=== PATIENT | male | born 1960 | race Caucasian/White ===

== ENCOUNTER 2017-05-17 15:00 | Inpatient (IN) | payer BC ==
[2017-06-16 15:06] VITALS: BMI 34.4
[2017-06-21] MEDS ORDERED: CEFAZOLIN/Water 2 GM/20 ML SYRINGE ONE (06:12)
[2017-06-21] MEDS ORDERED: Tranexamic Acid 1,000 MG/100 ML BAG ONE ×2 (06:12→09:25)
[2017-06-21] MEDS ORDERED: Fentanyl 100 MCG/2 ML VIAL ONE ×2 (06:25→06:44)
[2017-06-21] MEDS ORDERED: Midazolam HCl 2 mg/2 ml Vial ONE (06:25)
[2017-06-21] MEDS ORDERED: Lidocaine 2% w/Epinephrine 1:200K 20 ML VIAL ONE (06:26)
[2017-06-21] MEDS ORDERED: Bupivacaine 0.25% HCL 30 ML VIAL ONE ×2 (06:27→07:45)
[2017-06-21] MEDS ORDERED: Dexamethasone 20 MG/5 ML VIAL ONE (07:24)
[2017-06-21] MEDS ORDERED: Ketorolac Tromethamine 30 MG/ML VIAL ONE (07:24)
[2017-06-21] MEDS ORDERED: Ondansetron HCl/PF 4 MG/2 ML Vial ONE (07:24)
[2017-06-21] MEDS ORDERED: Propofol 200 MG/20 ML VIAL ONE (07:24)
[2017-06-21] MEDS ORDERED: Ondansetron HCl/PF 4 MG/2 ML Vial IVP PRN ×3 (07:31→09:35)
[2017-06-21] MEDS ORDERED: Zolpidem Tartrate 5 MG TAB PO PRN ×2 (07:31→09:35)
[2017-06-21] MEDS ORDERED: Promethazine HCl 25 MG/ML VIAL IM PRN ×3 (07:31→09:35)
[2017-06-21] MEDS ORDERED: Ropivacaine 0.2% 550 ML 550 ML NERVE BLCK SCH (07:31)
[2017-06-21] MEDS ORDERED: HYDROcodone/Acetaminophen 10/325 mg Tablet PO PRN ×3 (07:31→09:35)
[2017-06-21] MEDS ORDERED: traMADol HCl 50 MG TAB PO PRN ×3 (07:31→09:35)
[2017-06-21] MEDS ORDERED: Ketorolac Tromethamine 30 MG/ML VIAL IVP PRN (07:31)
[2017-06-21] MEDS ORDERED: Fentanyl 100 MCG/2 ML VIAL IV PRN (07:32)
[2017-06-21] MEDS ORDERED: Promethazine HCl 25 MG/ML VIAL SLOW IVP PRN (09:22)
[2017-06-21] MEDS ORDERED: Tranexamic Acid 1,000 MG in Sodium Chloride 0.9% 100 ML IVPB SCH (09:30)
[2017-06-21] MEDS ORDERED: Fentanyl 100 MCG/2 ML VIAL SLOW IVP PRN ×2 (09:35)
[2017-06-21] MEDS ORDERED: Acetaminophen 325 MG TAB PO PRN (09:35)
[2017-06-21] MEDS ORDERED: diphenhydrAMINE 25 MG CAP PO PRN (09:35)
[2017-06-21] MEDS: Dextrose 5 %-0.45 % NaCl 1,000 ML IV SCH ×2 (11:11→20:35)
--- NOTE | 2017-06-21 11:36 | OP ---
DATE OF PROCEDURE: PREOPERATIVE DIAGNOSIS: Right knee osteoarthritis, tricompartmental osteoarthritis. POSTOPERATIVE DIAGNOSIS: Right knee osteoarthritis, tricompartmental osteoarthritis. PROCEDURE PERFORMED: Right total knee arthroplasty. STAFF: Carson Portillo M.D. EXCHANGE OPERATOR: SHONA Drummond ANESTHESIA: Rabago, general LMA with single shot sciatic adductor canal. ESTIMATED BLOOD LOSS: 100 mL. TOURNIQUET TIME: 87 minutes. IMPLANTS: Wells 5 femoral component, 5 tibial component, A32 patella and a 9 mm poly. ANTIBIOTICS: The patient received Ancef 2 grams, TXA 1 gram. COMPLICATIONS: None. HISTORY OF PRESENT ILLNESS: Mr. Funes is a 57-year-old male who presented with bilateral knee osteoarthritis. He underwent a left total knee arthroplasty on 03/15/2017, presents back for repeat total knee arthroplasty on the right side. The patient understood risks and benefits of his right knee total knee arthroplasty to include pain, scar, bleeding, infection, decreased range of motion or strength, failure of the procedure, continued pain despite surgical intervention, loss of life or limb. The patient understood the risks and benefits of procedure and elected to proceed. PROCEDURE IN DETAIL: Time out was performed designating the patient's right lower extremity as the operative site based on sight, consents and markings. A timeout was performed, his right lower extremity designated as the operative site based on sight, consents and markings. After timeout was performed, the patient's tourniquet was brought up and was left up for 87 minutes. An anterior midline approach was made medial parapatellar arthrotomy, excised the fat pad. We took down the medial MCL, everted patella, mapped out the distal femur, removed some osteophytes, cut about 9 to 10 mm with 0 degrees varus valgus and 4 degrees anterior slope. We then made our chamfer cuts, we then placed our 3 degree external rotation guide, pinned it into position, mapped a size 5 like his opposite side. We then cut anterior and posterior chamfer cuts. We then removed the osteophytes from the distal femur. We then placed our pickle fork in position to map out our tibia and mapped the tibia. We cut 2 and 6 degrees, 4 degrees posterior slope and 0 degrees varus valgus. We removed bone, removed osteophytes, placed our lamina public relations writer, decompressed the medial and lateral, the PCL the osteophytes medial and laterally, pinned our size 5 tibial tray into position. We placed it into one-third same rotation. We then pinned in place. We placed a 9 mm poly. We had perfect full extension , good flexion, good posterior, anterior drawer, a little bit of laxity and 20 degrees of flexion, but overall was perfectly stable. I liked the position and balance. We then everted the patella, cut it down from 24 down to about 12. We drilled and placed A32 patella, tracked well. I was happy with the overall alignment. We then removed it. We drilled our lugs for our femur, removed it. We cemented our tibia, placed our poly, cemented our femur, cemented our patella. We then closed the arthrotomy matching corner to corner and extension. We then closed subcutaneous. We placed 30 mL of Marcaine without epinephrine intraarticularly, we then closed subcutaneous with 2 Quill, 0 Quill , 2-0 Quill, and glue. The patient will be admitted back to [facility] for postop protocol. LIZ
--- NOTE | 2017-06-21 11:50 | RAD ---
RIGHT KNEE TWO VIEWS: History: 57-year-old male status post total knee arthroplasty. FINDINGS: AP and lateral views of the right knee demonstrate recent total knee arthroplasty changes without ev idence of dislocation or periprostatic fracture. IMPRESSION: Unremarkable recent post right knee arthroplasty. POS: ELIJAH
[2017-06-21] MEDS: HYDROcodone/Acetaminophen 10/325 mg Tablet PO PRN ×3 (12:39→20:38)
[2017-06-21] MEDS: Ketorolac Tromethamine 30 MG/ML VIAL IM SCH ×2 (14:00→21:23)
[2017-06-21] MEDS: CEFAZOLIN/Water 2 GM/20 ML SYRINGE SLOW IVP SCH (15:57)
[2017-06-22] MEDS: CEFAZOLIN/Water 2 GM/20 ML SYRINGE SLOW IVP SCH (00:56)
[2017-06-22] MEDS: HYDROcodone/Acetaminophen 10/325 mg Tablet PO PRN ×6 (01:06→21:31)
[2017-06-22] MEDS: Dextrose 5 %-0.45 % NaCl 1,000 ML IV SCH ×2 (04:37→15:56)
[2017-06-22 05:37] LABS: Hematocrit 44.5 % (42.0-52.0); Red Blood Cell (RBC) Count 5.85 mill/uL (4.70-6.10); White Blood Cell (WBC) Count 15.1 thou/uL (4.8-10.8)
[2017-06-22] MEDS: Ketorolac Tromethamine 30 MG/ML VIAL IM SCH ×3 (05:50→21:20)
[2017-06-22] MEDS: Ferrous Gluconate 324 MG TAB PO SCH ×2 (09:08→21:20)
[2017-06-22] MEDS: Cyanocobalamin (Vitamin B-12) 1,000 MCG TAB PO SCH (09:08)
[2017-06-22] MEDS: Aspirin 325 MG TAB PO SCH (09:08)
[2017-06-22] MEDS: Lisinopril 20 MG TAB PO SCH (09:08)
[2017-06-22] MEDS: Aspirin 325 mg Enteric Coated Tablet PO SCH (09:09)
[2017-06-22] MEDS: Amlodipine 10 MG TAB PO SCH (09:09)
[2017-06-22] MEDS: Hydrochlorothiazide 25 MG TAB PO SCH (09:09)
[2017-06-22] MEDS: Multivitamin W/ Minerals 1 TAB PO SCH ×2 (09:09→09:11)
[2017-06-22] MEDS: Senokot S 8.6-50 MG TAB PO SCH ×2 (09:11→21:19)
[2017-06-23] MEDS: Dextrose 5 %-0.45 % NaCl 1,000 ML IV SCH ×2 (00:29→14:16)
[2017-06-23] MEDS: HYDROcodone/Acetaminophen 10/325 mg Tablet PO PRN ×3 (03:32→12:33)
[2017-06-23 04:45] LABS: Hematocrit 41.6 % (42.0-52.0); Mean Platelet Volume 8.1 fL (7.4-10.4); Red Blood Cell (RBC) Count 5.47 mill/uL (4.70-6.10); White Blood Cell (WBC) Count 12.4 thou/uL (4.8-10.8)
[2017-06-23] MEDS: Ketorolac Tromethamine 30 MG/ML VIAL IM SCH (06:33)
--- NOTE | 2017-06-23 07:37 | DIS ---
ADMITTING DIAGNOSIS: Right knee osteoarthritis. DISCHARGE DIAGNOSIS: Right knee osteoarthritis. PROCEDURE PERFORMED: Right total knee arthroplasty. HISTORY OF PRESENT ILLNESS: Mr. Funes is a 67-year-old male who underwent a second total knee, to lerated it well. Pain was controlled postoperatively. The patient had no acute events. The patient will be discharged to home. DIET: Regular. DISCHARGE ACTIVITY: Follow up with physical therapy, weightbearing as tolerated, range of motion. The patient will restart pain medications for pain control as well as an aspirin daily, restart his home medications. Follow up with me in 3 weeks for followup.
[2017-06-23] MEDS: Lisinopril 20 MG TAB PO SCH (07:57)
[2017-06-23] MEDS: Hydrochlorothiazide 25 MG TAB PO SCH (07:58)
[2017-06-23] MEDS: Aspirin 325 MG TAB PO SCH (07:58)
[2017-06-23] MEDS: Ferrous Gluconate 324 MG TAB PO SCH (07:58)
[2017-06-23] MEDS: Senokot S 8.6-50 MG TAB PO SCH (07:58)
[2017-06-23] MEDS: Multivitamin W/ Minerals 1 TAB PO SCH ×2 (07:59→08:06)
[2017-06-23] MEDS: Amlodipine 10 MG TAB PO SCH (07:59)
[2017-06-23] MEDS: Aspirin 325 mg Enteric Coated Tablet PO SCH (08:06)
[2017-06-23 13:02] VITALS: BP 152/82; TEMP 98.2
[2017-06-23] MEDS: Cyanocobalamin (Vitamin B-12) 1,000 MCG TAB PO SCH (14:16)
== END 2017-06-23 15:54 | disposition home or self-care (01) | DRG 470 ==
LOC: SJJU 06-21 05:27 → EDSTATUS 06-21 15:00
PROVIDERS: ADMIT Orthopaedic Surgery; ATTEND Orthopaedic Surgery
PROC: 0SRC0J9 Replacement of Right Knee Joint with Synthetic Substitute, Cemented, Open Approach (ICD-10-PCS; principal; 2017-06-21)
PROC: 3E0T3BZ Introduction of Anesthetic Agent into Peripheral Nerves and Plexi, Percutaneous Approach (ICD-10-PCS; 2017-06-21)
DX: M17.11 Unilateral primary osteoarthritis, right knee (principal); I10 Essential (primary) hypertension; Z87.891 Personal history of nicotine dependence; Z96.652 Presence of left artificial knee joint; Z82.49 Family history of ischemic heart disease and other diseases of the circulatory system; Z83.3 Family history of diabetes mellitus; Z82.3 Family history of stroke
CPT/HCPCS: 36415; 85027; A4306; C1713; C1776; G8978-GP-CJ; G8979-GP-CH; J1100; J1885; J2250; J2405; J2550; J2704; J2795; J3010; S0020

== ENCOUNTER 2017-06-16 14:49 | Outpatient (CLI) | payer BC ==
[2017-06-16 16:46] LABS: Hematocrit 47.1 % (42.0-52.0); Mean Platelet Volume 8.3 fL (7.4-10.4); Red Blood Cell (RBC) Count 6.36 mill/uL (4.70-6.10); White Blood Cell (WBC) Count 10.8 thou/uL (4.8-10.8)
[2017-06-16 16:47] LABS: Bilirubin Negative (Negative); Blood, Urine Negative (Negative); Glucose, Urine (Dipstick) Negative (Negative); Ketone, Urine Negative (Negative); Nitrite Negative (Negative); Protein, Urine (Dipstick) Trace mg/dL (Neg-Trace); Urobilinogen 0.2 mg/dL (0.2-1.0)
[2017-06-16 16:49] LABS: Bacteria/HPF None Seen HPF (None Seen); Hyaline Casts/LPF 0-3 HYALINE CAST LPF (0-3 Hyaline); RBC/HPF 0-3 HPF (0-3); Squamous Epithelial None Seen HPF (0-3); WBC/HPF None Seen HPF (0-3)
[2017-06-16 16:51] LABS: Prothrombin Time 13.5 SEC (12.0-14.7)
[2017-06-16 17:11] LABS: Anion Gap 14 mmol/L (10-20); BUN (Urea Nitrogen) 25 mg/dL (8.4-25.7); Calc. Creatinine Clearance 0 mL/min (70-130); Calcium 9.7 mg/dL (7.8-10.44); Carbon Dioxide 23 mmol/L (22-29); Chloride 104 mmol/L (98-107); Estimated GFR-MDRD 64
== END 2017-06-16 14:50 | disposition home or self-care (01) ==
LOC: LABBT 14:49
PROVIDERS: ATTEND Orthopaedic Surgery
DX: Z01.812 Encounter for preprocedural laboratory examination (principal); M17.11 Unilateral primary osteoarthritis, right knee
CPT/HCPCS: 80048; 81001; 85027; 85610; 86850; 86900; 86901; 87081

== ENCOUNTER 2017-11-06 14:30 | Emergency (ER) | payer OTHER ==
[2017-11-06] MEDS ORDERED: Adacel (T-DAP) 0.5 ML VIAL ONE (15:04)
[2017-11-06] MEDS ORDERED: Bacitracin Zinc 1 Packet ONE (15:34)
== END 2017-11-06 15:44 | disposition home or self-care (01) ==
LOC: SCSER 14:30
DX: S61.211A Laceration without foreign body of left index finger without damage to nail, initial encounter (principal); I10 Essential (primary) hypertension; K21.9 Gastro-esophageal reflux disease without esophagitis; M19.90 Unspecified osteoarthritis, unspecified site; Z79.891 Long term (current) use of opiate analgesic; Z79.899 Other long term (current) drug therapy; W26.0XXA Contact with knife, initial encounter; Y92.009 Unspecified place in unspecified non-institutional (private) residence as the place of occurrence of the external cause
CPT/HCPCS: 12002; 90471; 90715

== ENCOUNTER 2018-04-13 14:41 | Outpatient (CLI) | payer OTHER ==
[~2018-04-13 14:41] MED LIST: Iopamidol 370 76% 100 ML VIAL ONE
--- NOTE | 2018-04-13 16:44 | CT ---
ABDOMEN CT WITH AND WITHOUT CONTRAST PELVIC CT WITH AND WITHOUT CONTRAST 04/13/18 HISTORY: Hematuria x2 days. COMPARISON: None. FINDINGS: ABDOMEN CT: Lung bases are clear. Heart size is within normal limits. No pericardial fluid. The descending thorac ic aorta and abdominal aorta have a normal caliber. No periaortic fat stranding. Symmetric attenuatio n of psoas muscles. Gallbladder is surgically absent. Portal vein is patent. Liver, spleen, pancreas and adrenal glands h ave appropriate enhancement. No gastrohepatic, retrocrural or periportal lymphadenopathy. No mesenteric mass, lymphadenopathy, free air of free fluid. Limited evaluation of the alimentary canal by lack of oral contrast. No evidence of bowel obstruction . Ileocecal junction is normal. Normal caliber appendix. Scattered air and fecal material in a nondis tended, nondilated colon. There is evidence of diverticulosis without evidence of diverticulitis. Muc osal prominence of the sigmoid colon likely due to remote bouts of infection/inflammation. Evaluation is limited on this exam. With regard to the left kidney, no evidence of obstructive uropathy. There is appropriate enhancement . With regard to the right kidney, there is a heterogeneous enhancing mass measuring 8.7 x 11.6 x 9.2 c m. The mass occupies the mid to lower aspect of the right kidney and displaces some of the collecting system. There is abnormal attenuation extending into the lower right renal pelvis and peripelvic reg ion. There is increased attenuation in the right renal hilum along the course of the renal vein. Invo lvement of the right renal vein cannot be adequately assessed on this exam and therefore cannot be co mpletely excluded. No evidence of obstructive uropathy. PELVIC CT: No mass, lymphadenopathy, free air or free fluid. Contrast is noted in the dependent portion of the u rinary bladder and is unremarkable. No lytic or blastic lesions in the osseous structures. IMPRESSION: Right kidney neoplasm with extension into the right renal pelvis. Based on the current study, the pre sence or absence of involvement of the right renal vein cannot be adequately assessed and therefore, cannot be excluded. Results of the study discussed with Danis Brizuela, 04/13/18 at 4:03 p.m. Code CR POS: [facility]
== END 2018-04-13 14:42 | disposition home or self-care (01) ==
LOC: SCSCT 14:41
PROVIDERS: ATTEND Family Medicine
DX: R31.0 Gross hematuria (principal); C65.1 Malignant neoplasm of right renal pelvis
CPT/HCPCS: 74178

== ENCOUNTER 2018-04-27 07:55 | Outpatient (CLI) | payer OTHER ==
--- NOTE | 2018-04-27 10:50 | CT ---
CT CHEST WITH IV CONTRAST: Date: 04/27/18 HISTORY: Renal cell carcinoma. Initial staging. FINDINGS: Lungs are well inflated. No focal parenchymal lung mass. Minimal atelectasis at the bases. No pleural fluid, pneumothorax, or mediastinal adenopathy. Calcification within the arterial structures, includ ing the coronary arteries. IMPRESSION: 1. No CT evidence of metastatic disease of the chest. 2. Atherosclerosis. POS: [facility]
--- NOTE | 2018-04-27 13:04 | MRI ---
MRI OF THE ABDOMEN WITHOUT AND WITH CONTRAST: Comparison: 04-13-18 CT abdomen/pelvis. History: Renal cell carcinoma of the right kidney. Technique: Multiplanar, multisequence MRI images were obtained of the abdomen without and with IV con trast. FINDINGS: There is a large heterogeneous mass emanating from the lower pole of the right kidney. This measures 11.2 x 9.8 x 9.3 cm in size. There is a lobulation of the mass extending towards the hilar region of the kidney and more superiorly. This likely is the course of the right renal vein. The right renal ve in cannot be definitely seen and on the T2 images there is signal intensity within the normal flow vo id of the renal vein and this likely indicates tumor thrombus within the right renal vein. This does not appear to extend up the inferior vena cava into the liver. The right renal artery is displaced po steriorly. Bulky soft tissue density is seen in the hilar region of the kidney which predominately is the right renal vein, but confluent adjacent lymph nodes cannot be entirely excluded. No left renal mass is seen. The liver, adrenal glands, spleen, and pancreas are unremarkable. The gal lbladder has been removed. No marrow signal abnormality is present. IMPRESSION: 1. Large right renal mass is consistent with the patient's diagnosis of renal cell carcinoma. This ma ss appears to involve the right renal vein. [place] of soft tissue density medial to the right kid denton most likely represents involvement of the renal vein, but adjacent small confluent lymph nodes ar e also a possibility. POS: [facility]
[2018-04-27] MEDS ORDERED: Iopamidol 370 76% 100 ML VIAL ONE (14:20)
[2018-04-27] MEDS ORDERED: Gadobenate Dimeglumine 529 MG/1 ML (20ML VIAL) ONE (14:28)
--- NOTE | 2018-04-27 14:38 | NM ---
RADIONUCLIDE BONE SCAN: History: Kidney cancer. FINDINGS: Heterogeneous uptake is present at each shoulder, hand, ankle, and foot in a pattern of degenerative changes. Uptake at the macular and mandible is bilateral, asymmetric, and has the appearance of chron ic dental disease. Knee prostheses are apparent with adjacent uptake. Degenerative type uptake involv es the lower lumbar spine. IMPRESSION: No scintigraphic evidence of blastic osseous metastatic disease. POS: [facility]
== END 2018-04-27 07:56 | disposition home or self-care (01) ==
LOC: CT 07:55
PROVIDERS: ATTEND Internal Medicine Hematology & Oncology
DX: C64.1 Malignant neoplasm of right kidney, except renal pelvis (principal); N28.89 Other specified disorders of kidney and ureter; I25.10 Atherosclerotic heart disease of native coronary artery without angina pectoris
CPT/HCPCS: 71260; 74183; 78306; 82565; A9503; A9579

== ENCOUNTER 2019-08-07 09:53 | Inpatient (IN) | payer OTHER ==
[2019-08-07 10:10] VITALS: BMI 35.9
[2019-08-09] MEDS ORDERED: Tranexamic Acid 1,000 MG/10 ML VIAL ONE (06:09)
[2019-08-09] MEDS ORDERED: Sodium Chloride 0.9% 100 ML ONE (06:09)
[2019-08-09] MEDS ORDERED: Vancomycin 1.5 GRAM/300 ML BAG 1.5 GM in Premix Bag 1 BAG IVPB SCH ×2 (06:30→21:00)
[2019-08-09] MEDS ORDERED: Fentanyl 100 MCG/2 ML VIAL ONE (06:35)
[2019-08-09] MEDS ORDERED: Midazolam HCl 2 mg/2 ml Vial ONE (06:35)
[2019-08-09] MEDS ORDERED: Lidocaine 1% (PF) 30 ML VIAL ONE (06:35)
[2019-08-09] MEDS ORDERED: Ropivacaine 0.2% 550 ML 550 ML NERVE BLCK SCH (07:12)
[2019-08-09] MEDS ORDERED: HYDROcodone/Acetaminophen 10/325 mg Tablet PO PRN ×3 (07:12→12:05)
[2019-08-09] MEDS ORDERED: Zolpidem Tartrate 5 MG TAB PO PRN ×2 (07:12→12:05)
[2019-08-09] MEDS ORDERED: Ondansetron PF 4 MG/2 ML Vial IVP PRN ×2 (07:12→12:05)
[2019-08-09] MEDS ORDERED: traMADol HCl 50 MG TAB PO PRN ×4 (07:12→12:05)
[2019-08-09] MEDS ORDERED: Promethazine HCl 25 MG/ML VIAL IM PRN ×2 (07:12→08:05)
[2019-08-09] MEDS ORDERED: Fentanyl 100 MCG/2 ML VIAL SLOW IVP PRN (07:13)
[2019-08-09] MEDS ORDERED: Acetaminophen 325 MG TAB PO PRN ×2 (07:14→12:05)
[2019-08-09] MEDS ORDERED: Promethazine HCl 25 MG/ML VIAL SLOW IVP PRN (08:05)
[2019-08-09] MEDS ORDERED: Ondansetron HCl/PF 4 MG/2 ML Vial IVP PRN (08:05)
[2019-08-09] MEDS ORDERED: ePHEDrine/0.9% NaCl/PF SYRINGE 50 mg/10 ml ONE ×2 (08:13→13:23)
[2019-08-09] MEDS ORDERED: PHENYLEPHRINE-NS 100 MCG/ML 10 ML SYRINGE ONE ×2 (08:31→13:23)
[2019-08-09] MEDS ORDERED: Milk Of Magnesia 30 ML UDCUP PO PRN (12:05)
[2019-08-09] MEDS ORDERED: diphenhydrAMINE 50 MG CAP PO PRN (12:05)
[2019-08-09] MEDS ORDERED: Bisacodyl 10 MG SUPP PR PRN (12:05)
[2019-08-09] MEDS ORDERED: Methocarbamol 500 MG TAB PO PRN (12:05)
[2019-08-09] MEDS ORDERED: Ondansetron ODT 4 MG TAB PO PRN (12:05)
[2019-08-09] MEDS: CEFAZOLIN 2 GM in Premix Bag 1 BAG IVPB SCH ×2 (12:59→22:23)
[2019-08-09] MEDS: Dextrose 5 %-0.45 % NaCl 1,000 ML IV SCH (12:59)
[2019-08-09] MEDS: HYDROcodone/Acetaminophen 10/325 mg Tablet PO PRN ×3 (13:04→21:12)
[2019-08-09] MEDS ORDERED: PROPOFOL 200 MG/20 ML VIAL ONE (13:23)
[2019-08-09] MEDS ORDERED: Rocuronium Bromide 10 MG/ML (10ML VIAL) ONE (13:23)
[2019-08-09] MEDS ORDERED: Ondansetron PF 4 MG/2 ML Vial ONE (13:23)
[2019-08-09] MEDS ORDERED: Glycopyrrolate 0.2 MG/ML 5 ML SYRINGE ONE (13:23)
[2019-08-09] MEDS ORDERED: Ropivacaine 0.5% HCl/PF (150 MG/30 ML VIAL) ONE (13:23)
[2019-08-09] MEDS ORDERED: Lidocaine 1% PF 5 ML VIAL ONE (13:23)
[2019-08-09] MEDS ORDERED: Ropivacaine 0.2% HCl/PF (40 MG/20 ML VIAL) ONE (13:23)
--- NOTE | 2019-08-09 13:54 | HP ---
CHIEF COMPLAINT: Right shoulder pain. HISTORY OF PRESENT ILLNESS: Mr. Funes is a 59-year-old male, right-hand dominant, who presents with years of right shoulder pain, received cortisone injections with incomplete relief. Conservative measures of pain have failed. The patient's pain limits ability to activities. Denies numbness or tingling. The patient has completed his immunotherapy for his renal cell carcinoma, has been cleared for total shoulder arthroplasty as well as by Cardiology. PAST MEDICAL HISTORY: Renal cell carcinoma with nephrectomy, atrial fibrillation, hypertension, chronic knee pain, status post bilateral total knee arthroplasties , polycythemia, iron deficiency anemia, low testosterone. PAST SURGICAL HISTORY: Tonsillectomy, cholecystectomy, carpal tunnel release, bilateral total knee, hemorrhoidectomy, renal cell carcinoma with nephrectomy. MEDICATIONS: Include amlodipine, aspirin, lisinopril, metoprolol, multivitamin, omega-3, omeprazole, protein supplements, spironolactone, tamsulosin, tramadol, Co Q10. ALLERGIES: INCLUDE CHLORTHALIDONE, HYDRALAZINE AND CLONIDINE. SOCIAL HISTORY: Former smoker. 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 He is . He has four children and history of alcohol in the past. No drug use. PHYSICAL EXAMINATION: GENERAL: Alert and oriented male, in no acute distress, resting comfortably in bed. EXTREMITIES: The patient's right upper extremity shows external rotation to 30, elevation to 110. Neurovascularly intact. 2+ DP and PT pulses. The patient's previous radiographs showed right shoulder osteoarthritis, large goats myers deformity. ASSESSMENT AND PLAN: The patient will be taken to the operating suite for a right total shoulder arthroplasty. I discussed with family the risks and benefits of surgery to include pain, scar, bleeding, infection, damage to vital structures, Art deformity, failure of implant, need for revision [facility], loss of life or limb. The patient and family understand the risks and benefits of procedure. They elect to proceed. The patient will be taken to the operative suite. [facility] ID: [id number] [facility]
--- NOTE | 2019-08-09 17:23 | OP ---
DATE OF PROCEDURE: 08/09/2019 PREOPERATIVE DIAGNOSES: Right shoulder osteoarthritis with biceps tendinopathy. POSTOPERATIVE DIAGNOSES: Right shoulder osteoarthritis with biceps tendinopathy. PROCEDURES PERFORMED: 1. Right total shoulder arthroplasty. 2. Right biceps tenodesis. ECO INDUSTRIAL DEVELOPMENT CONSULTANT: Mary Kay Madsen PA-C ANESTHESIOLOGIST: Vance Christensen ANESTHESIA: The patient received general intubation with an interscalene block. ESTIMATED BLOOD LOSS: 350 mL. TOURNIQUET TIME: None. ANTIBIOTICS: Ancef 2 g and vancomycin 1.5 g. The patient received TXA 1 g. IMPLANTS: The patient had a large 60 flex CortiLoc glenoid with a flex 48 x 18 mm head and a flex 3B stem Tornier. COMPLICATIONS: None. HISTORY PRESENT ILLNESS: Mr. Funes is a pleasant 59-year-old male with multiple years of pain. The patient is right-hand dominant. 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 I discussed with the patient risks and benefits of right total shoulder arthroplasty with biceps tenodesis to include pain, scar, bleeding, damage to vital structures, nerves, or tendon, need for further surgeries, failure of procedure, continued pain despite surgical intervention, damage to vital structures, loss of life or limb. The patient understood the risks and benefits of procedure, he elected to proceed. DESCRIPTION OF PROCEDURE: Time-out was performed designating the patient's right upper extremity as the operative site based on site consent, and marking. After time-out, the patient's right upper extremity was prepped and draped in a sterile fashion. Deltopectoral incision was made, came down through the deltopectoral interval taking the vein laterally and deltoid were bulging in large and incised , we took down about a cm of the pack. Found this patient in conjoined, placed our Kolbel into position and exposed the shoulder. We came down through, was a cystic fluid within the biceps coming down through the biceps. I attempted osteotomy and took a portion of the osteophyte, but did not get of large section of swath of the patient's insertion on his lesser for as little peel osteotomy. We then moved. After completion of this, we came into the rotator interval, peeled off the remainder of the subscapularis and capsule. Came down, we cut the biceps and did a circumferential release. We after releasing inferiorly, staying on the bone, we knocked off with a rongeur as well as a curette the osteophytes inferiorly to remove them. We moved to the head, placing a retractor in front and behind for our cut with a Crego& Hohmann to expose and cut. We cut the head across and removed a little bit of osteophytes that you could see, it was very tight, it appears the patient 's bulk of his deltoid and pec. We broached. There was a cyst within the head, which we went and broached up to a size 3, placed a 3 stem. We placed the manhole cover over the top. I then placed our Darrach in position and started moving back using the #5. We placed the subscapularis to retract that anteriorly. We placed the Bankart anteriorly and Darrach posteriorly. We did a 360-degree release until our capsule expose the head. We placed a guide pin with a 5 degree version guide to help with reaming down the anterior aspect of the glenoid. With completion of our reaming being reamed for a large, we sized to a 60, which was very flattened. We reamed, drilled our center pole, placed our guide and drilled our three pegs. We trialed, had good overall alignment position. We started our cement, cemented our three outside pegs, impacted into place, removed, placed the dura back and moved back to the humerus. While there, we washed, we trialed, and got a 48 x 18, which seemed to size anterior to posterior. We removed the implant. We then once the cement had hardened, we trialed. After about 16 minutes, we trialed and we were able to translate 42% internal and external rotation overhead elevate. We removed the implant, drilled 2 holes right near the bicipital groove and 2 right near the anterior aspect of the footprint. Passed #5 Ethibond through the bone, which we passed in a W stitch through the cuff, placed one more stitch at the top of the bicipital groove to past the posterior supraspinatus and then eventually through the subscapularis, passed the W stitches and sewed them into place, tying the knot, leaving one of the limbs of the suture. We moved back to where our cut in the rotator interval we had made superiorly, passed a #2 Ethibond to the biceps and sewed that into the groove through the subscap and supraspinatus tying it off. We then used the limb, #5 at the top. We passed the bicipital groove to sew the corner of the interval. We closed the rest of interval with #2 Ethibond. We had placed one more 5-0 stitch laterally within the greater tuberosity, which we sewed to our subscapularis stitch, we had used to retract it for a double row equivalent. We had passed #5 to address the bicepsleft and sewed it down. We washed. We closed with #2 ran the deltopectoral interval. We closed a little small biceps and deltoid injury. We moved subcutaneous and closed with 0, 2-0, and simba. The patient will be elbow, wrist, and hand begin passive range of motion, external rotation greater than 20 degrees. He will follow up in my office. Preoperative antibiotics on discharge are as needed. [facility] [id number] [facility]
[2019-08-09] MEDS: Famotidine 20 MG TAB PO SCH (20:21)
[2019-08-09] MEDS ORDERED: Vancomycin HCl 1.5 GM in Sodium Chloride 0.9% 250 ML 300 ML IVPB SCH (21:00)
[2019-08-10] MEDS: HYDROcodone/Acetaminophen 10/325 mg Tablet PO PRN ×3 (01:04→09:16)
[2019-08-10 04:20] VITALS: TEMP 98.4
[2019-08-10] MEDS: Dextrose 5 %-0.45 % NaCl 1,000 ML IV SCH ×2 (04:50→07:14)
[2019-08-10 08:05] VITALS: BP 147/84
[2019-08-10] MEDS: Famotidine 20 MG TAB PO SCH (09:12)
== END 2019-08-10 11:26 | disposition home or self-care (01) | DRG 483 ==
LOC: SJJU 09:53 → UNDOADMIN 09:53 → SURG A 08-09 05:46 → SURG B 08-09 11:58
PROVIDERS: ADMIT Orthopaedic Surgery; ATTEND Orthopaedic Surgery
PROC: 0RRJ0JZ Replacement of Right Shoulder Joint with Synthetic Substitute, Open Approach (ICD-10-PCS; principal; 2019-08-09)
PROC: 0LS30ZZ Reposition Right Upper Arm Tendon, Open Approach (ICD-10-PCS; 2019-08-09)
DX: M19.011 Primary osteoarthritis, right shoulder (principal); M75.21 Bicipital tendinitis, right shoulder; I48.91 Unspecified atrial fibrillation; Z96.653 Presence of artificial knee joint, bilateral; I10 Essential (primary) hypertension; I25.10 Atherosclerotic heart disease of native coronary artery without angina pectoris; G47.30 Sleep apnea, unspecified; D64.9 Anemia, unspecified; Z79.82 Long term (current) use of aspirin; Z79.899 Other long term (current) drug therapy; Z87.891 Personal history of nicotine dependence; Z85.528 Personal history of other malignant neoplasm of kidney
CPT/HCPCS: A4306; C1713; J0690; J2001; J2250; J2405; J2704; J2795; J3010; J3490

== ENCOUNTER 2020-04-11 13:45 | Inpatient (IN) | payer OTHER ==
[2020-05-12 17:58] LABS: SARS-CoV-2 MS2 Positive; SARS-CoV-2 N Gene Negative; SARS-CoV-2 S Gene Negative; SARS-CoV-2 by NAA Not Detected (NotDetected); SARS-CoV-2 orf1ab Negative
[2020-05-14 09:35] VITALS: BMI 35.9
[2020-05-15] MEDS ORDERED: Midazolam HCl 2 mg/2 ml Vial ONE (06:51)
[2020-05-15] MEDS ORDERED: Fentanyl 100 MCG/2 ML VIAL ONE ×2 (06:51→07:28)
[2020-05-15] MEDS ORDERED: Sodium Chloride 0.9% 100 ML ONE (07:11)
[2020-05-15] MEDS ORDERED: Tranexamic Acid 1,000 MG/10 ML VIAL ONE (07:11)
[2020-05-15] MEDS ORDERED: Fentanyl 100 MCG/2 ML VIAL SLOW IVP PRN (07:29)
[2020-05-15] MEDS ORDERED: Promethazine HCl 25 MG/ML VIAL IM PRN ×2 (07:30→10:41)
[2020-05-15] MEDS ORDERED: HYDROcodone/Acetaminophen 10/325 mg Tablet PO PRN ×3 (07:30→12:17)
[2020-05-15] MEDS ORDERED: Ondansetron PF 4 MG/2 ML Vial IVP PRN ×2 (07:30→12:17)
[2020-05-15] MEDS ORDERED: Ropivacaine 0.2% 550 ML 550 ML NERVE BLCK SCH (07:30)
[2020-05-15] MEDS ORDERED: traMADol HCl 50 MG TAB PO PRN ×4 (07:30→12:17)
[2020-05-15] MEDS ORDERED: Zolpidem Tartrate 5 MG TAB PO PRN ×2 (07:30→12:17)
[2020-05-15] MEDS ORDERED: Phenylephrine 10 MG/ML VIAL ONE ×2 (08:16→09:04)
[2020-05-15] MEDS ORDERED: PHENYLEPHRINE-NS 100 MCG/ML 10 ML SYRINGE ONE ×2 (08:16→08:57)
[2020-05-15] MEDS ORDERED: Dexamethasone 20 MG/5 ML VIAL ONE (08:57)
[2020-05-15] MEDS ORDERED: Rocuronium Bromide 10 MG/ML (10ML VIAL) ONE (08:57)
[2020-05-15] MEDS ORDERED: EPHEDRINE 25 MG/5 ML SYRINGE ONE (08:57)
[2020-05-15] MEDS ORDERED: Ondansetron PF 4 MG/2 ML Vial ONE (08:57)
[2020-05-15] MEDS ORDERED: Lidocaine 1% PF 5 ML VIAL ONE (08:57)
[2020-05-15] MEDS ORDERED: PROPOFOL 200 MG/20 ML VIAL ONE (08:57)
[2020-05-15] MEDS ORDERED: Ropivacaine 0.5% HCl/PF (150 MG/30 ML VIAL) ONE (08:57)
[2020-05-15] MEDS ORDERED: Succinylcholine Chloride 20 MG/ML 10 ml SYRINGE FS ONE (08:57)
[2020-05-15] MEDS ORDERED: Ropivacaine 0.2% HCl/PF (40 MG/20 ML VIAL) ONE (08:57)
[2020-05-15] MEDS ORDERED: Glycopyrrolate 0.2 MG/ML 5 ML SYRINGE ONE (08:57)
[2020-05-15] MEDS ORDERED: Promethazine HCl 25 MG/ML VIAL SLOW IVP PRN (10:41)
[2020-05-15] MEDS ORDERED: Ondansetron HCl/PF 4 MG/2 ML Vial IVP PRN (10:41)
[2020-05-15] MEDS ORDERED: Methocarbamol 500 MG TAB PO PRN (12:17)
[2020-05-15] MEDS ORDERED: Bisacodyl 10 MG SUPP PR PRN (12:17)
[2020-05-15] MEDS ORDERED: Acetaminophen 325 MG TAB PO PRN (12:17)
[2020-05-15] MEDS ORDERED: Milk Of Magnesia 30 ML UDCUP PO PRN (12:17)
[2020-05-15] MEDS ORDERED: diphenhydrAMINE 50 MG CAP PO PRN (12:17)
[2020-05-15] MEDS ORDERED: Ondansetron ODT 4 MG TAB PO PRN (12:17)
[2020-05-15] MEDS ORDERED: Ketorolac Tromethamine 30 MG/ML VIAL IVP SCH (12:30)
[2020-05-15] MEDS ORDERED: Famotidine 20 MG TAB PO SCH (12:30)
[2020-05-15 13:05] LABS: #Eosinphils 0.1 thou/uL (0.0-0.7); #Lymphocytes 0.6 thou/uL (1.20-3.40); #Monocytes 0.3 thou/uL (0.11-0.59); #Neutrophils 15.9 thou/uL (1.40-6.50); %Basophils 0.1 % (0.0-1.0); %Eosinophils 0.4 % (0.0-10.0); %Lymphocytes 3.8 % (21.0-51.0); %Monocytes 1.5 % (0.0-10.0); %Neutrophils 94.3 % (42.0-75.0); Mean Corpuscular HGB CONC 30.8 g/dL (32.0-36.0); Mean Corpuscular Hemoglobin 24.8 pg (27.0-31.0); Mean Corpuscular Volume 80.4 fL (78.0-98.0); Mean Platelet Volume 8.3 fL (7.4-10.4); Platelet Count 243 thou/uL (130-400); RBC Distribution Width 15.4 % (11.5-14.5); Red Blood Cell (RBC) Count 5.64 mill/uL (4.70-6.10); White Blood Cell (WBC) Count 16.8 thou/uL (4.8-10.8)
[2020-05-15] MEDS: Dextrose 5 %-0.45 % NaCl 1,000 ML IV SCH (13:07)
[2020-05-15 13:20] LABS: Anion Gap 14 mmol/L (10-20); BUN (Urea Nitrogen) 19 mg/dL (8.4-25.7); Calc. Creatinine Clearance 88 mL/min (70-130); Calcium 7.9 mg/dL (7.8-10.44); Carbon Dioxide 21 mmol/L (22-29); Chloride 105 mmol/L (98-107); Estimated GFR-MDRD 49; Glucose 117 mg/dL (70-105); Potassium 5.1 mmol/L (3.5-5.1); Sodium 135 mmol/L (136-145)
[2020-05-15] MEDS: CEFAZOLIN 2 GM in Premix Bag 1 BAG IVPB SCH (14:15)
[2020-05-15] MEDS: HYDROcodone/Acetaminophen 10/325 mg Tablet PO PRN ×2 (14:18→18:14)
[2020-05-15] MEDS: Ketorolac Tromethamine 30 MG/ML VIAL IVP SCH (17:25)
[2020-05-15] MEDS ORDERED: Vancomycin 1.5 GRAM/300 ML BAG 1.5 GM in Premix Bag 1 BAG IVPB SCH (20:00)
[2020-05-15] MEDS: Famotidine 20 MG TAB PO SCH (21:18)
[2020-05-16] MEDS: HYDROcodone/Acetaminophen 10/325 mg Tablet PO PRN ×4 (00:17→13:47)
[2020-05-16] MEDS: CEFAZOLIN 2 GM in Premix Bag 1 BAG IVPB SCH (00:20)
[2020-05-16] MEDS: Ketorolac Tromethamine 30 MG/ML VIAL IVP SCH ×2 (00:28→06:00)
[2020-05-16] MEDS: Dextrose 5 %-0.45 % NaCl 1,000 ML IV SCH (04:40)
[2020-05-16 05:32] LABS: Anion Gap 14 mmol/L (10-20); BUN (Urea Nitrogen) 25 mg/dL (8.4-25.7); Calc. Creatinine Clearance 82 mL/min (70-130); Calcium 8.4 mg/dL (7.8-10.44); Carbon Dioxide 20 mmol/L (22-29); Chloride 102 mmol/L (98-107); Estimated GFR-MDRD 45; Glucose 107 mg/dL (70-105); Potassium 4.4 mmol/L (3.5-5.1); Sodium 132 mmol/L (136-145)
[2020-05-16 08:19] VITALS: TEMP 97.7
[2020-05-16] MEDS: Famotidine 20 MG TAB PO SCH (08:49)
--- NOTE | 2020-05-16 11:33 | OP ---
DATE OF PROCEDURE: 05/15/2020 POSTOPERATIVE DIAGNOSES: 1. Left shoulder osteoarthritis. 2. Biceps tendinopathy. POSTOPERATIVE DIAGNOSES: 1. Left shoulder osteoarthritis. 2. Biceps tendinopathy. PROCEDURES PERFORMED: 1. Left total shoulder arthroplasty. 2. Left biceps tenodesis. J2EE APPLICATION DEVELOPER: Brendan Adam PA-C ANESTHESIOLOGIST: Dr. Teresa Mcdonald. ANESTHESIA: The patient received a general endotracheal intubation with interscalene block. ESTIMATED BLOOD LOSS: 75 mL. TOURNIQUET TIME: None. IMPLANTS: Antibiotic simplex cement with a standard PTC 2B humeral stem and Aequalis 50 mm x 19 mm humeral head. A quarter pegged glenoid, anatomic, L60. COMPLICATIONS: None. HISTORY OF PRESENT ILLNESS: Mr. Funes is a 60-year-old male with longstanding history of arthritis. The patient had severe degenerative changes of the left shoulder. I discussed with him the risks and benefits of left total shoulder arthroplasty to include pain, scar, bleeding, infection, damage to vital structures, decreased range of motion and strength, continued pain despite surgical intervention, failure of procedure residential, need for further surgeries, loss of life or limb. The patient understood risks and benefits. DESCRIPTION OF PROCEDURE: Time-out was performed, designating the patient's left lower extremity as the operative site based on site, consents, and marking, placed in beach chair position with bony prominences well padded. We made a deltopectoral incision. We found the cephalic vein, took it laterally, came down through the deltopectoral interval, came down on the patient's pec, took down a centimeter down of the pec to expose the shoulder. We took the biceps, which was encased in bone, which we osteotomized to open it up, there was tendinopathy and and thinned. We took an osteotome, took down a portion of the lesser tuberosity and peeled back the patient's shoulder. We came down on the large goat's myers deformity inferiorly and knocked that goat's myers deformity off. With pushing this and exposing the head, we cut the humeral head. I was happy overall with the patient's humeral cut, but we had to re-cut the humerus, we sequentially broached up to a size 2, placed 2 millets and placed a hub cap on top and placed retractors anterior and posterior and started our 360 degree release. The patient had a large flat glenoid. We placed it centrally, drilled our three pegs after we had placed our center pin and reamed. We cleaned up some of the inferior osteophytes, and then, after completion of that, we placed our pegged glenoid into place. We impacted it into position, and we moved back to our humerus. We trialed. We sized up to a 50, waited for 15 minutes for trialing, and trialed across the implant. The 48 was too much posterior shuck. The 50 came back with good alignment and position. I then removed the patient's implant. We put #5 Ethibond, drill holes for repair of the lesser tuberosity. We then impacted our implant into position. We sewed whip stitches back through the cuff inferior to superior tying the knots and cutting them, coming with the stitch I had used to control the cuff throughout and doubled it rolling it over, closed the rotator interval with #1 Ethibond. Tenodesed the biceps with Vicryl bit still in place with Vicryl for our tenodesis. We washed. We closed with 0, 2-0, and simba. The patient will be admitted and given 24 hours of antibiotics. Range of motion activities. We will see him back in the and discharge him home tomorrow if he is doing well. Job ID: [id number] [facility]
[2020-05-16 11:55] VITALS: BP 136/86
[2020-05-16 13:38] LABS: Anion Gap 15 mmol/L (10-20); BUN (Urea Nitrogen) 26 mg/dL (8.4-25.7); Calc. Creatinine Clearance 82 mL/min (70-130); Calcium 8.7 mg/dL (7.8-10.44); Carbon Dioxide 25 mmol/L (22-29); Chloride 101 mmol/L (98-107); Estimated GFR-MDRD 46; Glucose 103 mg/dL (70-105); Potassium 4.5 mmol/L (3.5-5.1); Sodium 136 mmol/L (136-145)
== END 2020-05-16 14:38 | disposition home or self-care (01) | DRG 483 ==
LOC: SURG A 05-15 06:16
PROVIDERS: ADMIT Orthopaedic Surgery; ATTEND Orthopaedic Surgery
PROC: 0RRK0JZ Replacement of Left Shoulder Joint with Synthetic Substitute, Open Approach (ICD-10-PCS; principal; 2020-05-15)
PROC: 0LS40ZZ Reposition Left Upper Arm Tendon, Open Approach (ICD-10-PCS; 2020-05-15)
DX: M19.012 Primary osteoarthritis, left shoulder (principal); M75.22 Bicipital tendinitis, left shoulder; Z20.828 Contact with and (suspected) exposure to other viral communicable diseases; Z90.49 Acquired absence of other specified parts of digestive tract; Z90.89 Acquired absence of other organs
CPT/HCPCS: 36415; 80048; 85025; 86850; 86900; 86901; 87635; 93005; A4306; C1713; C1776; J0690; J1100; J1885; J2250; J2370; J2405; J2704; J2795; J3010; J3370; J3490; U0003

== ENCOUNTER 2020-05-12 06:23 | Outpatient (CLI) | payer OTHER | END 2020-05-12 06:24 | disposition home or self-care (01) | LOC: LABBT 06:23 | PROVIDERS: ATTEND Orthopaedic Surgery | DX: Z01.810 Encounter for preprocedural cardiovascular examination (principal); M19.012 Primary osteoarthritis, left shoulder | CPT/HCPCS: 93005; 93010 ==

== ENCOUNTER 2020-08-06 06:38 | Outpatient (CLI) | payer OTHER ==
[2020-08-06 13:32] LABS: Hemoglobin 16.9 g/dL (14.0-18.0); Mean Corpuscular HGB CONC 30.8 G/DL (32.0-36.0); Mean Corpuscular Hemoglobin 24.7 PG (27.0-33.0); Mean Corpuscular Volume 80.2 fl (80.0-100.0); Mean Platelet Volume 9.8 fl (7.4-10.4); Platelet Count 216 10x3/uL (130-400); RBC Distribution Width 20.9 % (11.5-14.5); Red Blood Cell (RBC) Count 6.83 10x6/uL (4.40-5.80); White Blood Cell (WBC) Count 7.2 10x3/uL (4.5-11.0)
[2020-08-06 13:46] LABS: Anion Gap 17 mmol/L (10-20); BUN (Urea Nitrogen) 22 mg/dL (8.4-25.7); Calc. Creatinine Clearance 0 mL/min (70-130); Calcium 9.1 mg/dL (7.8-10.44); Carbon Dioxide 23 mmol/L (22-29); Chloride 102 mmol/L (98-107); Glucose 142 mg/dL (70-105); Potassium 4.5 mmol/L (3.5-5.1); Sodium 137 mmol/L (136-145)
[2020-08-06 13:53] LABS: PTT 27.7 sec (22.0-33.0); Prothrombin Time 10.9 sec (9.5-12.1)
[2020-08-06 23:54] LABS: SARS-CoV-2 MS2 Positive; SARS-CoV-2 N Gene Negative; SARS-CoV-2 S Gene Negative; SARS-CoV-2 by NAA Not Detected (NotDetected); SARS-CoV-2 orf1ab Negative
== END 2020-08-06 06:39 | disposition home or self-care (01) ==
LOC: LABBT 06:38
PROVIDERS: ATTEND Surgery
DX: Z01.818 Encounter for other preprocedural examination (principal); M48.062 Spinal stenosis, lumbar region with neurogenic claudication; M51.16 Intervertebral disc disorders with radiculopathy, lumbar region; Z20.828 Contact with and (suspected) exposure to other viral communicable diseases
CPT/HCPCS: 80048; 85027; 85610; 85730; 87635; 93005; 93010; U0003

== ENCOUNTER 2020-08-11 08:13 | Outpatient (CLI) | payer OTHER ==
[2020-08-11 14:57] LABS: SARS-CoV-2 MS2 Positive; SARS-CoV-2 N Gene Negative; SARS-CoV-2 S Gene Negative; SARS-CoV-2 by NAA Not Detected (NotDetected); SARS-CoV-2 orf1ab Negative
== END 2020-08-11 08:14 | disposition home or self-care (01) ==
LOC: LABBT 08:13
PROVIDERS: ATTEND Surgery
DX: Z01.812 Encounter for preprocedural laboratory examination (principal); M51.16 Intervertebral disc disorders with radiculopathy, lumbar region; M48.062 Spinal stenosis, lumbar region with neurogenic claudication; Z20.828 Contact with and (suspected) exposure to other viral communicable diseases
CPT/HCPCS: 87635; U0003

== ENCOUNTER 2020-10-14 06:08 | Day surgery (SDC) | payer OTHER ==
[2020-10-14] MEDS ORDERED: Thrombin 5000 UNITS/5 ML VIAL ONE (06:36)
[2020-10-14] MEDS ORDERED: Fentanyl 250 MCG/5 ML VIAL ONE (06:36)
[2020-10-14] MEDS ORDERED: Midazolam HCl 2 mg/2 ml Vial ONE (07:28)
[2020-10-14] MEDS ORDERED: Phenylephrine 10 MG/ML VIAL ONE ×2 (08:02→09:27)
[2020-10-14] MEDS ORDERED: PHENYLEPHRINE-NS 100 MCG/ML 10 ML SYRINGE ONE (09:46)
[2020-10-14] MEDS ORDERED: ePHEDrine 50 MG/ML VIAL ONE (09:46)
[2020-10-14] MEDS ORDERED: Lidocaine 1% PF 5 ML VIAL ONE (09:46)
[2020-10-14] MEDS ORDERED: PROPOFOL 200 MG/20 ML VIAL ONE (09:46)
[2020-10-14] MEDS ORDERED: Dexamethasone 20 MG/5 ML VIAL ONE (09:46)
[2020-10-14] MEDS ORDERED: Glycopyrrolate 0.2 MG/ML 5 ML SYRINGE ONE (09:46)
[2020-10-14] MEDS ORDERED: Rocuronium Bromide 10 MG/ML (10ML VIAL) ONE (09:46)
[2020-10-14] MEDS ORDERED: Calcium Chloride 1 GM/10 ML Abboject SYRINGE ONE (09:46)
[2020-10-14] MEDS ORDERED: Bisacodyl 10 MG SUPP PR PRN (10:37)
[2020-10-14] MEDS ORDERED: Morphine 2 MG/ML VIAL SLOW IVP PRN (10:37)
[2020-10-14] MEDS ORDERED: traMADol HCl 50 MG TAB PO PRN (10:37)
[2020-10-14] MEDS ORDERED: Acetaminophen/Codeine 30-300mg Tablet PO PRN (10:37)
[2020-10-14] MEDS ORDERED: Mag-Al 1200 mg/1200 mg/30 ML UDCUP PO PRN (10:37)
[2020-10-14] MEDS ORDERED: Milk Of Magnesia 30 ML UDCUP PO PRN (10:37)
[2020-10-14] MEDS ORDERED: Ondansetron PF 4 MG/2 ML Vial IVP PRN (10:37)
[2020-10-14] MEDS ORDERED: Acetaminophen 325 MG TAB PO PRN (10:37)
[2020-10-14] MEDS ORDERED: tiZANidine HCl 4 MG TAB PO PRN (10:37)
--- NOTE | 2020-10-14 10:47 | OP ---
DATE OF PROCEDURE: 10/14/2020 LOCATION: OR-12. PREPROCEDURE DIAGNOSIS: Low back and leg pain, bilateral with lumbar disk extrusion and lumbar stenosis. POSTPROCEDURE DIAGNOSIS: Low back and leg pain, bilateral with lumbar disk extrusion and lumbar stenosis. PROCEDURES PERFORMED: 1. L4-L5 laminectomy, partial facetectomy, foraminotomy. 2. Right L4-L5 trans-facet diskectomy with a modifier 59 (this is a separate procedure from the L4-L5 laminectomy to allow for decompression of the exiting right L4 nerve root throughout foramen). 3. Left L5-S1 trans-facet diskectomy with hemilaminotomy, foraminotomy over the left L5 and left S1 nerve roots. 4. Use of operating microscope for microdissection. DESCRIPTION OF PROCEDURE: After informed consent was obtained from the patient, the patient was brought to the OR. Proper patient, pause, and identification were carried out. He was placed under excellent general endotracheal anesthesia and positioned prone on the OR table. All appropriate points were padded. We identified the L4-L5 and L5-S1 dorsal spines and lamina. A linear ar was made over this region. This area was sterilely cleansed, prepared, and draped. Proper patient, pause, and identification was carried out. The wound was then opened with a combination of sharp, monopolar, and blunt dissection. We exposed the L4-L5 and left L5-S1 segments along with left L5-S1 facet complex. Localization film confirmed our area of interest. We then performed L4-L5 laminectomy, partial facetectomy and then working over the right L4-L5 facet, we removed facet to allow for entry into the right L4 foramen and lateral and far-lateral disk extrusion. Lateral and far-lateral disk material was removed throughout the right L4 foramen with excellent decompression of the common dural tube, the exiting right L4 nerve root, and the traversing right L5 nerve root. We then turned our attention to the use of the operating microscope as well to the left L5-S1 segment. Hemilaminotomy, foraminotomy was performed to assure freeing of the left S1 nerve root. We then worked out into the left L5 neural foramen. Osteophytic disk was identified and we skeletonized the exiting left L5 nerve root throughout its foramen and extraforaminally. Copious irrigation occurred throughout as did maximizing hemostasis. We then closed the wound in anatomic layers following sprinkling of vancomycin powder. The patient emerged from anesthesia. Job ID: [id number]
[2020-10-14] MEDS ORDERED: HYDROmorphone 0.5 MG/0.5 ML SYRINGE ONE ×4 (11:15→14:28)
[2020-10-14] MEDS ORDERED: Fentanyl 100 MCG/2 ML VIAL ONE ×2 (11:16→12:40)
[2020-10-14] MEDS: CEFAZOLIN 2 GM in Premix Bag 1 BAG IVPB SCH ×2 (15:04→22:25)
[2020-10-14 16:21] VITALS: BMI 344326.5
[2020-10-14] MEDS: Sodium Chloride 0.9% 1,000 ML IV SCH (16:30)
[2020-10-14] MEDS: HYDROcodone/Acetaminophen 10/325 mg Tablet PO PRN (17:17)
[2020-10-14] MEDS ORDERED: Amlodipine 10 MG TAB PO SCH (21:00)
[2020-10-15] MEDS: Sodium Chloride 0.9% 1,000 ML IV SCH (02:06)
[2020-10-15] MEDS: HYDROcodone/Acetaminophen 10/325 mg Tablet PO PRN (07:41)
[2020-10-15 08:15] VITALS: BP 133/74; TEMP 98.3
--- NOTE | 2020-10-15 08:46 | PRG ---
DATE OF SERVICE: 10/15/2020 Mr. Funes is postoperative day #1 after going L4-L5 laminectomy, partial facetectomies, and foraminotomies with a right L4-L5 trans-facet diskectomy, as well as left L5-S1 hemilaminotomy and foraminotomy with left L5-S1 trans-facet diskectomy. He had no overnight events. He endorses significant improvement in his posterior leg pain bilaterally, as well as improved leg paresthesias. He does note numbness in the toes of both feet. He endorses postoperative lowback pain that improves with hydrocodone 10/325 and tizanidine. He ambulated multiple times to the restroom and has been urinating without difficulty. He demonstrates 5/5 strength throughout the bilateral lower extremity myotomes. He has no drainage from his incision. He will be stable for discharge today. Postoperative restrictions and wound care instructions were discussed. He will follow up in our clinic on an outpatient basis in the upcoming weeks and will call sooner with any questions or concerns. Job ID: [id number] [facility]
[2020-10-15] MEDS ORDERED: Ubidecarenone 50 MG CAP PO SCH (09:00)
[2020-10-15] MEDS ORDERED: Spironolactone 25 MG TAB PO SCH (09:00)
[2020-10-15] MEDS ORDERED: Tamsulosin HCl 0.4 MG CAP PO SCH (09:00)
[2020-10-15] MEDS ORDERED: Multivit, Therapeutic 1 TAB PO SCH (09:00)
--- NOTE | 2020-10-16 05:19 | DIS ---
DATE OF ADMISSION: 10/14/2020 DATE OF DISCHARGE: 10/15/2020 DIAGNOSES: 1. Lumbar stenosis. 2. Lumbar disk extrusion. 3. Lumbar radiculopathy. PROCEDURES: 1. L4-L5 laminectomy, partial facetectomies, and foraminotomies with a right L4-L5 transfacet diskectomy. 2. Left L5-S1 hemilaminotomy and foraminotomy with left L5-S1 transfacet diskectomy on October 14, 2020. CONSULT: None. HOSPITAL COURSE: Mr. Funes is a very pleasant 60-year-old gentleman, who was admitted following the above procedure for postoperative monitoring and pain control. He is doing very well postoperatively and endorses significant improvement in his preoperative leg pain bilaterally. He also reports improved leg paresthesias with only minor numbness in the toes of both feet. His low back pain improves with hydrocodone 10/325 and tizanidine. He has been ambulating without difficulty. He has no bladder dysfunction. He demonstrates full strength throughout the bilateral lower extremity myotome. He has been discharged home in stable condition. Postoperative restrictions and wound care instructions were discussed. Pain medications and muscle relaxants were sent to the patient's pharmacy. Our team will arrange for outpatient followup in the upcoming week for reevaluation and wound check. The patient will call sooner with any questions or concerns. Job ID: [id number]
== END 2020-10-15 11:08 | disposition home or self-care (01) ==
LOC: SDC 06:08 → T4-A 10:37 → SDC 10-15 11:08
PROVIDERS: ATTEND Surgery
PROC: 01NB0ZZ Release Lumbar Nerve, Open Approach (ICD-10-PCS; principal; 2020-10-14)
PROC: 0SB40ZZ Excision of Lumbosacral Disc, Open Approach (ICD-10-PCS; principal; 2020-10-14)
PROC: 0SB20ZZ Excision of Lumbar Vertebral Disc, Open Approach (ICD-10-PCS; principal; 2020-10-14)
DX: M51.16 Intervertebral disc disorders with radiculopathy, lumbar region (principal); M48.061 Spinal stenosis, lumbar region without neurogenic claudication; Z79.82 Long term (current) use of aspirin; Z79.899 Other long term (current) drug therapy
CPT/HCPCS: 76000; J0690; J1100; J1170; J2250; J2370; J2704; J3010; J3370; J3490

== ENCOUNTER 2021-05-04 17:42 | Outpatient (CLI) | payer OTHER ==
[2020-09-30 12:02] LABS: Hemoglobin 18.8 g/dL (13.5-17.5); Mean Corpuscular Hemoglobin 26.7 pg (27.0-33.0); Mean Corpuscular Volume 83.5 fl (81.2-95.1); Mean Platelet Volume 9.4 fl (7.4-10.4); Platelet Count 266 10x3/uL (150-450); RBC Distribution Width 19.5 % (11.5-14.5); Red Blood Cell (RBC) Count 7.04 10x6/uL (4.32-5.72); White Blood Cell (WBC) Count 6.7 10x3/uL (3.5-10.5)
[2020-09-30 12:03] LABS: Anion Gap 19 mmol/L (10-20); BUN (Urea Nitrogen) 16 mg/dL (8.4-25.7); Calc. Creatinine Clearance 0 mL/min (70-130); Calcium 9.5 mg/dL (7.8-10.44); Carbon Dioxide 21 mmol/L (22-29); Chloride 102 mmol/L (98-107); Glucose 106 mg/dL (70-105); Potassium 5.5 mmol/L (3.5-5.1); Sodium 136 mmol/L (136-145)
[2020-09-30 12:33] LABS: INR-International Normal Ratio 1.1; PTT 32.1 sec (22.0-33.0); Prothrombin Time 11.4 sec (9.5-12.1)
[2020-10-01 00:28] LABS: SARS-CoV-2 PCR by NAA DETECTED (NotDetected)
[2021-05-04 18:44] LABS: #Eosinphils 0.7 10x3/uL (0.0-0.5); #Monocytes 0.5 10x3/uL (0.0-1.1); #Neutrophils 6.9 10x3/uL (1.5-8.4); %Basophils 0.3 % (0.0-2.0); %Eosinophils 7.8 % (0.0-6.0); %Lymphocytes 11.1 % (18.0-47.0); %Monocytes 5.2 % (0.0-10.0); %Neutrophils 75.4 % (40.0-75.0); Hemoglobin 15.4 g/dL (13.5-17.5); Mean Corpuscular HGB CONC 30.7 g/dL (32.0-36.0); Mean Corpuscular Volume 81.5 fl (81.2-95.1); Mean Platelet Volume 10.1 fl (7.4-10.4); Platelet Count 249 10x3/uL (150-450); RBC Distribution Width 16.7 % (11.5-14.5); Red Blood Cell (RBC) Count 6.15 10x6/uL (4.32-5.72); White Blood Cell (WBC) Count 9.2 10x3/uL (3.5-10.5)
[2021-05-04 19:02] LABS: Anion Gap 15 mmol/L (10-20); BUN (Urea Nitrogen) 21 mg/dL (8.4-25.7); Calc. Creatinine Clearance 0 mL/min (70-130); Calcium 10.2 mg/dL (7.8-10.44); Carbon Dioxide 26 mmol/L (22-29); Chloride 103 mmol/L (98-107); Glucose 122 mg/dL (70-105); Potassium 4.7 mmol/L (3.5-5.1); Sodium 139 mmol/L (136-145)
[2021-05-05 12:43] LABS: SARS-CoV-2 PCR by NAA Not Detected (NotDetected)
== END 2021-05-04 17:43 | disposition home or self-care (01) ==
LOC: LABBT 17:42
PROVIDERS: ATTEND Orthopaedic Surgery
DX: U07.1 COVID-19 (principal); Z01.818 Encounter for other preprocedural examination; M51.16 Intervertebral disc disorders with radiculopathy, lumbar region; M48.062 Spinal stenosis, lumbar region with neurogenic claudication
CPT/HCPCS: 80048; 85025; 85027; 85610; 85730; 93005; 93010; U0003; U0005

== ENCOUNTER 2021-05-07 05:43 | Day surgery (SDC) | payer OTHER ==
[2021-05-06 10:20] VITALS: BMI 35.2
[2021-05-07] MEDS ORDERED: Fentanyl 100 MCG/2 ML VIAL ONE (06:32)
[2021-05-07] MEDS ORDERED: Midazolam HCl 2 mg/2 ml Vial ONE (06:32)
[2021-05-07] MEDS ORDERED: Lidocaine 1% w/Epinephrine 1:100K 20 ML VIAL ONE (06:35)
[2021-05-07] MEDS ORDERED: Lidocaine 1% (PF) 30 ML VIAL ONE (06:35)
[2021-05-07] MEDS ORDERED: PHENYLEPHRINE-NS 100 MCG/ML 10 ML SYRINGE ONE (07:05)
[2021-05-07] MEDS ORDERED: Lidocaine 1% PF 5 ML VIAL ONE (07:05)
[2021-05-07] MEDS ORDERED: ePHEDrine 50 MG/ML VIAL ONE (07:05)
[2021-05-07] MEDS ORDERED: PROPOFOL 200 MG/20 ML VIAL ONE (07:05)
[2021-05-07] MEDS ORDERED: Dexamethasone 20 MG/5 ML VIAL ONE (07:05)
[2021-05-07] MEDS ORDERED: Ondansetron PF 4 MG/2 ML Vial ONE (07:05)
[2021-05-07] MEDS ORDERED: HYDROcodone/Acetaminophen 5/325 mg Tablet ONE (10:10)
== END 2021-05-07 11:10 | disposition home or self-care (01) ==
LOC: SDC 05:43
PROVIDERS: ATTEND Orthopaedic Surgery
PROC: 01N40ZZ Release Ulnar Nerve, Open Approach (ICD-10-PCS; principal; 2021-05-07)
PROC: 0KB90ZZ Excision of Right Lower Arm and Wrist Muscle, Open Approach (ICD-10-PCS; principal; 2021-05-07)
PROC: 01N50ZZ Release Median Nerve, Open Approach (ICD-10-PCS; principal; 2021-05-07)
DX: G56.21 Lesion of ulnar nerve, right upper limb (principal); G56.01 Carpal tunnel syndrome, right upper limb; M67.421 Ganglion, right elbow; M19.021 Primary osteoarthritis, right elbow; Z79.82 Long term (current) use of aspirin; Z79.899 Other long term (current) drug therapy; Z90.5 Acquired absence of kidney
CPT/HCPCS: 80048; 85025; 85027; 85610; 85730; 88304; 93005; 93010; J0690; J1100; J2001; J2250; J2405; J2704; J3010; J3490; U0003; U0005

== ENCOUNTER 2021-12-28 15:26 | Outpatient (CLI) | payer BC | END 2021-12-28 15:27 | disposition home or self-care (01) | LOC: SCSRAD 15:26 | PROVIDERS: ATTEND Internal Medicine Rheumatology | DX: M46.1 Sacroiliitis, not elsewhere classified (principal) | CPT/HCPCS: 72202 ==

== ENCOUNTER 2022-05-13 17:30 | Outpatient (CLI) | payer BC | END 2022-05-13 17:31 | disposition home or self-care (01) | LOC: SLEEPLAB 17:30 | PROVIDERS: ATTEND Family Medicine | DX: G47.33 Obstructive sleep apnea (adult) (pediatric) (principal) | CPT/HCPCS: 95800 ==

== ENCOUNTER 2022-05-21 13:55 | Outpatient (CLI) | payer BC | END 2022-05-21 13:56 | disposition home or self-care (01) | LOC: SCSMRI 13:55 | PROVIDERS: ATTEND Orthopaedic Surgery | DX: M47.812 Spondylosis without myelopathy or radiculopathy, cervical region (principal); M50.30 Other cervical disc degeneration, unspecified cervical region; M48.02 Spinal stenosis, cervical region; R93.7 Abnormal findings on diagnostic imaging of other parts of musculoskeletal system | CPT/HCPCS: 72141 ==

== ENCOUNTER 2022-07-22 11:06 | Inpatient (IN) | payer BC ==
[2022-07-22 13:04] VITALS: BMI 31.1
[2022-07-22] MEDS ORDERED: Ondansetron PF 4 MG/2 ML Vial IVP PRN (14:12)
[2022-07-22] MEDS ORDERED: Acetaminophen 325 MG TAB PO PRN (14:12)
[2022-07-22] MEDS: Lactated Ringer's 1,000 ML IV SCH ×2 (16:42→22:03)
[2022-07-23 04:46] LABS: #Eosinphils 0.2 thou/uL (0.0-0.7); #Lymphocytes 1.2 thou/uL (1.20-3.40); #Monocytes 0.9 thou/uL (0.11-0.59); #Neutrophils 8.7 thou/uL (1.40-6.50); %Basophils 0.2 % (0.0-1.0); %Eosinophils 1.4 % (0.0-10.0); %Lymphocytes 11.2 % (21.0-51.0); %Monocytes 7.8 % (0.0-10.0); %Neutrophils 79.5 % (42.0-75.0); Hemoglobin 17.5 g/dL (14.0-18.0); Mean Corpuscular Hemoglobin 31.4 pg (27.0-31.0); Mean Corpuscular Volume 98.2 fl (78.0-98.0); Mean Platelet Volume 7.7 fL (7.4-10.4); Platelet Count 219 10x3/uL (130-400); RBC Distribution Width 15.9 % (11.5-14.5); Red Blood Cell (RBC) Count 5.58 mill/uL (4.70-6.10); White Blood Cell (WBC) Count 10.9 10x3/uL (4.8-10.8)
[2022-07-23 05:24] LABS: Albumin 3.6 g/dL (3.5-5.0); Anion Gap 14 mmol/L (10-20); BUN (Urea Nitrogen) 40 mg/dL (8.4-25.7); BUN/Creatinine Ratio 21.39; Calc. Creatinine Clearance 58 mL/min (70-130); Calcium 8.6 mg/dL (7.8-10.44); Carbon Dioxide 29 mmol/L (22-29); Chloride 96 mmol/L (98-107); Estimated GFR 41; Glucose 86 mg/dL (70-105); Phosphorus 2.4 mg/dL (2.3-4.7); Sodium 135 mmol/L (136-145)
[2022-07-23] MEDS: Lactated Ringer's 1,000 ML IV SCH ×2 (06:34→16:43)
[2022-07-23] MEDS ORDERED: Folic Acid 1 MG TAB PO SCH (09:00)
[2022-07-23] MEDS ORDERED: Pantoprazole 40 MG VIAL IVP SCH (09:00)
[2022-07-23] MEDS ORDERED: Tamsulosin HCl 0.4 MG CAP PO SCH (09:00)
[2022-07-23] MEDS ORDERED: Enoxaparin Sodium 40 MG/0.4 ML SYRINGE SC SCH (09:00)
[2022-07-23 16:09] VITALS: BP 122/78; TEMP 98.4
== END 2022-07-23 17:57 | disposition home or self-care (01) | DRG 389 ==
LOC: 2SW 12:09
PROVIDERS: ADMIT Hospitalist; ATTEND Hospitalist
PROC: 0D9670Z Drainage of Stomach with Drainage Device, Via Natural or Artificial Opening (ICD-10-PCS; principal; 2022-07-22)
DX: K56.600 Partial intestinal obstruction, unspecified as to cause (principal); D84.9 Immunodeficiency, unspecified; N17.9 Acute kidney failure, unspecified; Z20.822 Contact with and (suspected) exposure to COVID-19; I48.0 Paroxysmal atrial fibrillation; Z96.612 Presence of left artificial shoulder joint; Z96.611 Presence of right artificial shoulder joint; Z96.653 Presence of artificial knee joint, bilateral; N18.30 Chronic kidney disease, stage 3 unspecified; L40.9 Psoriasis, unspecified; I12.9 Hypertensive chronic kidney disease with stage 1 through stage 4 chronic kidney disease, or unspecified chronic kidney disease; E86.0 Dehydration; I95.1 Orthostatic hypotension; N40.0 Benign prostatic hyperplasia without lower urinary tract symptoms; Z85.528 Personal history of other malignant neoplasm of kidney; Z90.5 Acquired absence of kidney; Z79.899 Other long term (current) drug therapy
CPT/HCPCS: 36415; 74250; 80069; 85025; C9113; J1650; J7120; U0003; U0005

== ENCOUNTER 2022-07-24 18:08 | Inpatient (IN) | payer BC ==
[2022-07-24 19:47] LABS: #Eosinphils 0.2 thou/uL (0.0-0.7); #Lymphocytes 0.9 thou/uL (1.20-3.40); #Monocytes 0.7 thou/uL (0.11-0.59); #Neutrophils 10.6 thou/uL (1.40-6.50); %Basophils 0.1 % (0.0-1.0); %Lymphocytes 7.2 % (21.0-51.0); %Monocytes 5.2 % (0.0-10.0); %Neutrophils 85.5 % (42.0-75.0); Hemoglobin 19.7 g/dL (14.0-18.0); Mean Corpuscular HGB CONC 33.8 g/dL (32.0-36.0); Mean Corpuscular Hemoglobin 33.2 pg (27.0-31.0); Mean Corpuscular Volume 98.2 fl (78.0-98.0); Mean Platelet Volume 7.6 fL (7.4-10.4); Platelet Count 204 10x3/uL (130-400); RBC Distribution Width 15.5 % (11.5-14.5); Red Blood Cell (RBC) Count 5.95 mill/uL (4.70-6.10); White Blood Cell (WBC) Count 12.4 10x3/uL (4.8-10.8)
[2022-07-24 20:04] LABS: ALT (SGPT) 45 U/L (8-55); AST (SGOT) 40 U/L (5-34); Albumin 4.2 g/dL (3.5-5.0); Alkaline Phosphatase 81 U/L (40-110); Anion Gap 16 mmol/L (10-20); BUN (Urea Nitrogen) 22 mg/dL (8.4-25.7); Bilirubin, Total 1.5 mg/dL (0.2-1.2); Calc. Creatinine Clearance 0 mL/min (70-130); Calcium 9.8 mg/dL (7.8-10.44); Carbon Dioxide 30 mmol/L (22-29); Chloride 93 mmol/L (98-107); Estimated GFR 66; Globulin 2.7 g/dL (2.4-3.5); Glucose 85 mg/dL (70-105); Potassium 4.2 mmol/L (3.5-5.1); Protein, Total 6.9 g/dL (6.0-8.3); Sodium 135 mmol/L (136-145)
[2022-07-24] MEDS ORDERED: Ondansetron PF 4 MG/2 ML Vial ONE (20:42)
[2022-07-24] MEDS ORDERED: Acetaminophen 325 MG TAB PO PRN (22:18)
[2022-07-24] MEDS ORDERED: Morphine 4 MG/ML VIAL ONE (22:23)
[2022-07-24 22:29] LABS: Bacteria/HPF None Seen HPF (None Seen); Bilirubin 1+ (Negative); Blood, Urine Negative (Negative); Clarity Clear (Clear); Glucose, Urine (Dipstick) Normal (Negative); Ketone, Urine 40 mg/dL (Negative); Leukocyte Negative Leu/uL (Negative); Nitrite Negative (Negative); Protein, Urine (Dipstick) 200 mg/dL (Neg-Trace); RBC/HPF 0-3 HPF (0-3); Specific Gravity, Urine 1.029 (1.002-1.036); Squamous Epithelial None Seen HPF (0-3); WBC/HPF 0-3 HPF (0-3); pH, Urine 6.5 (5.0-9.0)
[2022-07-24] MEDS ORDERED: Pantoprazole 40 MG VIAL IVP SCH (22:30)
[2022-07-24 23:23] VITALS: BMI 31.0
[2022-07-24] MEDS: Sodium Chloride 0.9% 1,000 ML IV SCH (23:26)
[2022-07-25] MEDS: Morphine 4 MG/ML VIAL SLOW IVP PRN ×5 (01:47→21:59)
[2022-07-25] MEDS ORDERED: Ondansetron PF 4 MG/2 ML Vial IVP PRN (03:00)
[2022-07-25 06:42] LABS: #Eosinphils 0.2 thou/uL (0.0-0.7); #Lymphocytes 1.1 thou/uL (1.20-3.40); #Monocytes 0.8 thou/uL (0.11-0.59); #Neutrophils 9.1 thou/uL (1.40-6.50); %Eosinophils 1.5 % (0.0-10.0); %Lymphocytes 9.8 % (21.0-51.0); %Monocytes 6.8 % (0.0-10.0); %Neutrophils 81.9 % (42.0-75.0); Hemoglobin 17.9 g/dL (14.0-18.0); Mean Corpuscular Hemoglobin 32.6 pg (27.0-31.0); Mean Corpuscular Volume 98.7 fl (78.0-98.0); Mean Platelet Volume 7.8 fL (7.4-10.4); Platelet Count 194 10x3/uL (130-400); RBC Distribution Width 15.5 % (11.5-14.5); Red Blood Cell (RBC) Count 5.49 mill/uL (4.70-6.10); White Blood Cell (WBC) Count 11.1 10x3/uL (4.8-10.8)
[2022-07-25 07:09] LABS: Anion Gap 13 mmol/L (10-20); BUN (Urea Nitrogen) 17 mg/dL (8.4-25.7); Calc. Creatinine Clearance 85 mL/min (70-130); Calcium 9.5 mg/dL (7.8-10.44); Carbon Dioxide 32 mmol/L (22-29); Chloride 97 mmol/L (98-107); Estimated GFR 63; Glucose 74 mg/dL (70-105); Potassium 4.8 mmol/L (3.5-5.1); Sodium 137 mmol/L (136-145)
[2022-07-25] MEDS: Sodium Chloride 0.9% 1,000 ML IV SCH ×2 (08:53→18:23)
[2022-07-25] MEDS: Pantoprazole 40 MG VIAL IVP SCH (08:54)
[2022-07-25] MEDS ORDERED: Chloraseptic Spray 180 ml Bottle PO PRN (14:21)
[2022-07-25] MEDS: Amlodipine 10 MG TAB PO SCH (21:00)
[2022-07-25] MEDS ORDERED: Ketorolac Tromethamine 30 MG/ML VIAL IVP SCH (21:30)
[2022-07-25] MEDS: Cepastat Lozenges 1 LOZ PO PRN (21:57)
[2022-07-26] MEDS: Morphine 4 MG/ML VIAL SLOW IVP PRN ×3 (01:28→08:26)
[2022-07-26] MEDS: Cepastat Lozenges 1 LOZ PO PRN (01:30)
[2022-07-26] MEDS: Sodium Chloride 0.9% 1,000 ML IV SCH ×4 (04:57→20:43)
[2022-07-26 06:40] LABS: #Eosinphils 0.2 thou/uL (0.0-0.7); #Lymphocytes 1.1 thou/uL (1.20-3.40); #Monocytes 0.8 thou/uL (0.11-0.59); #Neutrophils 8.7 thou/uL (1.40-6.50); %Basophils 0.2 % (0.0-1.0); %Eosinophils 2.1 % (0.0-10.0); %Lymphocytes 10.4 % (21.0-51.0); %Monocytes 7.6 % (0.0-10.0); %Neutrophils 79.7 % (42.0-75.0); Hemoglobin 18.3 g/dL (14.0-18.0); Mean Corpuscular HGB CONC 34.4 g/dL (32.0-36.0); Mean Corpuscular Hemoglobin 34.2 pg (27.0-31.0); Mean Corpuscular Volume 99.5 fl (78.0-98.0); Mean Platelet Volume 7.8 fL (7.4-10.4); Platelet Count 181 10x3/uL (130-400); RBC Distribution Width 15.6 % (11.5-14.5); Red Blood Cell (RBC) Count 5.34 mill/uL (4.70-6.10); White Blood Cell (WBC) Count 10.9 10x3/uL (4.8-10.8)
[2022-07-26 07:16] LABS: Anion Gap 16 mmol/L (10-20); BUN (Urea Nitrogen) 16 mg/dL (8.4-25.7); Calc. Creatinine Clearance 90 mL/min (70-130); Calcium 8.9 mg/dL (7.8-10.44); Carbon Dioxide 28 mmol/L (22-29); Chloride 100 mmol/L (98-107); Estimated GFR 69; Potassium 3.7 mmol/L (3.5-5.1); Sodium 140 mmol/L (136-145)
[2022-07-26 07:26] LABS: Glucose 59 mg/dL (70-105)
[2022-07-26] MEDS: Pantoprazole 40 MG VIAL IVP SCH (08:20)
[2022-07-26] MEDS: Tamsulosin HCl 0.4 MG CAP PO SCH (08:40)
[2022-07-26] MEDS: Polyethylene Glycol 3350 17 GM Packet PO SCH (13:44)
[2022-07-26] MEDS: Senokot S 8.6-50 MG TAB PO SCH (20:42)
[2022-07-26] MEDS: Amlodipine 10 MG TAB PO SCH (20:42)
[2022-07-27 04:45] LABS: #Eosinphils 0.3 thou/uL (0.0-0.7); #Lymphocytes 1.2 thou/uL (1.20-3.40); #Monocytes 0.8 thou/uL (0.11-0.59); #Neutrophils 8.7 thou/uL (1.40-6.50); %Basophils 0.3 % (0.0-1.0); %Eosinophils 2.4 % (0.0-10.0); %Lymphocytes 10.8 % (21.0-51.0); %Monocytes 7.5 % (0.0-10.0); %Neutrophils 79.1 % (42.0-75.0); Hemoglobin 17.1 g/dL (14.0-18.0); Mean Corpuscular HGB CONC 33.1 g/dL (32.0-36.0); Mean Corpuscular Hemoglobin 32.5 pg (27.0-31.0); Mean Corpuscular Volume 98.1 fl (78.0-98.0); Platelet Count 206 10x3/uL (130-400); RBC Distribution Width 15.4 % (11.5-14.5); Red Blood Cell (RBC) Count 5.27 mill/uL (4.70-6.10)
[2022-07-27 04:57] LABS: Anion Gap 13 mmol/L (10-20); BUN (Urea Nitrogen) 13 mg/dL (8.4-25.7); Calc. Creatinine Clearance 98 mL/min (70-130); Carbon Dioxide 26 mmol/L (22-29); Chloride 101 mmol/L (98-107); Estimated GFR 76; Glucose 74 mg/dL (70-105); Magnesium 1.6 mg/dL (1.6-2.6); Potassium 3.4 mmol/L (3.5-5.1); Sodium 137 mmol/L (136-145)
[2022-07-27] MEDS: Sodium Chloride 0.9% 1,000 ML IV SCH (05:37)
[2022-07-27 06:24] LABS: Phosphorus 1.9 mg/dL (2.3-4.7)
[2022-07-27] MEDS ORDERED: Potassium Chloride 20 MEQ TAB PO SCH (08:15)
[2022-07-27] MEDS: Pantoprazole 40 MG VIAL IVP SCH (08:40)
[2022-07-27] MEDS: Polyethylene Glycol 3350 17 GM Packet PO SCH (08:41)
[2022-07-27] MEDS: Senokot S 8.6-50 MG TAB PO SCH (08:41)
[2022-07-27] MEDS: Tamsulosin HCl 0.4 MG CAP PO SCH (08:41)
[2022-07-27 12:06] VITALS: BP 121/76; TEMP 98
== END 2022-07-27 17:28 | disposition home or self-care (01) | DRG 389 ==
LOC: ERS 18:08 → SURG A 22:08
PROVIDERS: ADMIT Hospitalist; ATTEND Hospitalist
PROC: 0D9670Z Drainage of Stomach with Drainage Device, Via Natural or Artificial Opening (ICD-10-PCS; principal; 2022-07-24)
DX: K56.609 Unspecified intestinal obstruction, unspecified as to partial versus complete obstruction (principal); D84.9 Immunodeficiency, unspecified; I10 Essential (primary) hypertension; K21.9 Gastro-esophageal reflux disease without esophagitis; M06.9 Rheumatoid arthritis, unspecified; L40.50 Arthropathic psoriasis, unspecified; Z96.653 Presence of artificial knee joint, bilateral; Z96.612 Presence of left artificial shoulder joint; Z96.611 Presence of right artificial shoulder joint; I48.0 Paroxysmal atrial fibrillation; Z85.528 Personal history of other malignant neoplasm of kidney; Z90.5 Acquired absence of kidney; Z79.52 Long term (current) use of systemic steroids; Z79.899 Other long term (current) drug therapy; Z90.49 Acquired absence of other specified parts of digestive tract; Z90.89 Acquired absence of other organs; Z82.49 Family history of ischemic heart disease and other diseases of the circulatory system; Z87.891 Personal history of nicotine dependence
CPT/HCPCS: 36415; 36416; 74018; 80048; 80053; 81003; 81015; 83735; 84100; 85025; 96374; 96375; C9113; J2270; J2405; J7050

== ENCOUNTER 2022-07-28 19:52 | Inpatient (IN) | payer BC ==
[~2022-07-28 19:52] MED LIST changes: +GASTROGRAFIN 30 ML BOT ONE; -Iopamidol 370 76% 100 ML VIAL ONE; +Iopamidol-370 76% 500 ML 1 ML ONE
[2022-07-28] MEDS ORDERED: Ketorolac Tromethamine 30 MG/ML VIAL ONE (20:56)
[2022-07-28] MEDS ORDERED: Ondansetron PF 4 MG/2 ML Vial ONE (20:56)
[2022-07-28 21:01] LABS: #Basophils 0.1 thou/uL (0.0-0.2); #Eosinphils 0.1 thou/uL (0.0-0.7); #Lymphocytes 1.3 thou/uL (1.20-3.40); #Neutrophils 10.5 thou/uL (1.40-6.50); %Basophils 0.4 % (0.0-1.0); %Eosinophils 1.1 % (0.0-10.0); %Lymphocytes 10.1 % (21.0-51.0); %Monocytes 7.9 % (0.0-10.0); %Neutrophils 80.5 % (42.0-75.0); Hemoglobin 20.1 g/dL (14.0-18.0); Mean Corpuscular HGB CONC 33.4 g/dL (32.0-36.0); Mean Corpuscular Volume 95.8 fl (78.0-98.0); Platelet Count 242 10x3/uL (130-400); RBC Distribution Width 15.7 % (11.5-14.5); White Blood Cell (WBC) Count 13.1 10x3/uL (4.8-10.8)
[2022-07-28 21:20] LABS: ALT (SGPT) 37 U/L (8-55); AST (SGOT) 28 U/L (5-34); Albumin 4.4 g/dL (3.5-5.0); Alkaline Phosphatase 81 U/L (40-110); Anion Gap 17 mmol/L (10-20); BUN (Urea Nitrogen) 15 mg/dL (8.4-25.7); Bilirubin, Total 1.1 mg/dL (0.2-1.2); Calc. Creatinine Clearance 0 mL/min (70-130); Calcium 10.1 mg/dL (7.8-10.44); Carbon Dioxide 27 mmol/L (22-29); Chloride 95 mmol/L (98-107); Estimated GFR 57; Globulin 2.5 g/dL (2.4-3.5); Glucose 92 mg/dL (70-105); Lipase 98 U/L (8-78); Potassium 3.5 mmol/L (3.5-5.1); Protein, Total 6.9 g/dL (6.0-8.3); Sodium 135 mmol/L (136-145)
[2022-07-29] MEDS ORDERED: Ondansetron PF 4 MG/2 ML Vial ONE ×2 (01:35→11:50)
[2022-07-29] MEDS ORDERED: Morphine 4 MG/ML VIAL ONE (01:35)
[2022-07-29] MEDS ORDERED: Morphine 4 MG/ML VIAL SLOW IVP PRN ×2 (01:59→02:34)
[2022-07-29] MEDS ORDERED: Ondansetron PF 4 MG/2 ML Vial IVP PRN ×2 (02:00→12:51)
[2022-07-29] MEDS ORDERED: Ondansetron ODT 4 MG TAB SL PRN (02:00)
[2022-07-29] MEDS ORDERED: Acetaminophen 325 MG TAB PO PRN (02:00)
[2022-07-29] MEDS ORDERED: Acetaminophen 650 MG Suppository PR PRN (02:23)
[2022-07-29] MEDS ORDERED: Sodium Chloride 0.9% 500 ML IV SCH (02:45)
[2022-07-29 02:52] VITALS: BMI 30.3
[2022-07-29] MEDS: Sodium Chloride 0.9% 1,000 ML IV SCH ×2 (04:36→12:42)
[2022-07-29 06:10] LABS: #Eosinphils 0.1 thou/uL (0.0-0.7); #Lymphocytes 1.2 thou/uL (1.20-3.40); #Monocytes 0.9 thou/uL (0.11-0.59); %Basophils 0.3 % (0.0-1.0); %Eosinophils 0.9 % (0.0-10.0); %Lymphocytes 10.9 % (21.0-51.0); %Monocytes 8.2 % (0.0-10.0); %Neutrophils 79.7 % (42.0-75.0); Hemoglobin 19.8 g/dL (14.0-18.0); Mean Corpuscular Hemoglobin 32.1 pg (27.0-31.0); Mean Corpuscular Volume 97.2 fl (78.0-98.0); Mean Platelet Volume 7.9 fL (7.4-10.4); Platelet Count 246 10x3/uL (130-400); RBC Distribution Width 15.7 % (11.5-14.5); Red Blood Cell (RBC) Count 6.16 mill/uL (4.70-6.10); White Blood Cell (WBC) Count 11.2 10x3/uL (4.8-10.8)
[2022-07-29 06:30] LABS: Anion Gap 15 mmol/L (10-20); BUN (Urea Nitrogen) 17 mg/dL (8.4-25.7); Calc. Creatinine Clearance 67 mL/min (70-130); Calcium 9.7 mg/dL (7.8-10.44); Carbon Dioxide 32 mmol/L (22-29); Chloride 91 mmol/L (98-107); Estimated GFR 49; Glucose 86 mg/dL (70-105); Potassium 3.5 mmol/L (3.5-5.1); Sodium 134 mmol/L (136-145)
[2022-07-29 07:20] LABS: SARS-CoV-2 NAA Rapid Test Not Detected (NotDetected)
[2022-07-29] MEDS ORDERED: fentaNYL PF 100 MCG/2 ML SYRINGE ONE (11:27)
[2022-07-29] MEDS ORDERED: Sodium Chloride 0.9% 100 ML ONE (11:36)
[2022-07-29] MEDS ORDERED: cefOXitin 2 GM VIAL ONE (11:36)
[2022-07-29] MEDS ORDERED: Phenylephrine 10 MG/ML VIAL ONE (11:50)
[2022-07-29] MEDS ORDERED: Succinylcholine 200 MG/10 ml SYRINGE FS ONE (11:50)
[2022-07-29] MEDS ORDERED: Rocuronium Bromide 10 MG/ML (10ML VIAL) ONE (11:50)
[2022-07-29] MEDS ORDERED: PROPOFOL 200 MG/20 ML VIAL ONE (11:50)
[2022-07-29] MEDS ORDERED: Dexamethasone 20 MG/5 ML VIAL ONE (11:50)
[2022-07-29] MEDS ORDERED: NEOSTIGMINE 3 MG/3 ML SYR 3 MG/3 ML SYRINGE ONE (11:50)
[2022-07-29] MEDS ORDERED: Albumin 5% 500 ML ONE (12:02)
[2022-07-29] MEDS ORDERED: Ondansetron HCl/PF 4 MG/2 ML Vial IVP PRN (12:35)
[2022-07-29] MEDS ORDERED: Promethazine HCl 25 MG/ML VIAL IVPB PRN (12:35)
[2022-07-29] MEDS ORDERED: Promethazine HCl 25 MG/ML VIAL IM PRN ×2 (12:35→12:51)
[2022-07-29] MEDS ORDERED: diphenhydrAMINE 50 MG/ML VIAL IVP PRN (12:51)
[2022-07-29] MEDS ORDERED: diphenhydrAMINE 25 MG CAP PO PRN (12:51)
[2022-07-29] MEDS ORDERED: Naloxone HCl 0.4 mg/ml Vial IV PRN (12:51)
[2022-07-29] MEDS ORDERED: diphenhydrAMINE 50 MG/ML VIAL IM PRN (12:51)
[2022-07-29] MEDS ORDERED: Communication Order-Pharmacy FS SCH (13:00)
[2022-07-29] MEDS ORDERED: FENTANYL 50 MCG/ML 1 ML VIAL ONE (13:28)
[2022-07-29] MEDS: 1/2 NS w/KCL 20 mEq 1,000 ML IV SCH (18:01)
[2022-07-30] MEDS: 1/2 NS w/KCL 20 mEq 1,000 ML IV SCH ×3 (02:33→18:12)
[2022-07-30 05:41] LABS: #Eosinphils 0.1 thou/uL (0.0-0.7); #Lymphocytes 1.2 thou/uL (1.20-3.40); #Monocytes 0.7 thou/uL (0.11-0.59); #Neutrophils 8.9 thou/uL (1.40-6.50); %Basophils 0.3 % (0.0-1.0); %Eosinophils 0.9 % (0.0-10.0); %Lymphocytes 10.6 % (21.0-51.0); %Monocytes 6.8 % (0.0-10.0); %Neutrophils 81.4 % (42.0-75.0); Hemoglobin 16.4 g/dL (14.0-18.0); Mean Corpuscular HGB CONC 31.7 g/dL (32.0-36.0); Platelet Count 225 10x3/uL (130-400); RBC Distribution Width 15.2 % (11.5-14.5); Red Blood Cell (RBC) Count 5.29 mill/uL (4.70-6.10); White Blood Cell (WBC) Count 10.9 10x3/uL (4.8-10.8)
[2022-07-30 06:21] LABS: Anion Gap 11 mmol/L (10-20); BUN (Urea Nitrogen) 15 mg/dL (8.4-25.7); Calc. Creatinine Clearance 83 mL/min (70-130); Calcium 8.1 mg/dL (7.8-10.44); Carbon Dioxide 28 mmol/L (22-29); Chloride 99 mmol/L (98-107); Estimated GFR 63; Glucose 74 mg/dL (70-105); Sodium 134 mmol/L (136-145)
[2022-07-30] MEDS: FENTANYL 500 MCG/10 ML VIAL 2,000 MCG in Sodium Chloride 0.9% 60 ML IV PRN (12:24)
[2022-07-30] MEDS ORDERED: Tamsulosin HCl 0.4 MG CAP PO SCH (14:00)
[2022-07-31] MEDS: 1/2 NS w/KCL 20 mEq 1,000 ML IV SCH ×2 (01:03→09:09)
[2022-07-31] MEDS: FENTANYL 500 MCG/10 ML VIAL 2,000 MCG in Sodium Chloride 0.9% 60 ML IV PRN (06:49)
[2022-07-31] MEDS: Tamsulosin HCl 0.4 MG CAP PO SCH (09:10)
[2022-07-31] MEDS: D5 1/2 NS w/20 mEq KCL 1,000 ML IV SCH ×2 (09:45→22:45)
[2022-07-31] MEDS ORDERED: Amlodipine 10 MG TAB PO SCH (21:00)
[2022-08-01] MEDS: Tamsulosin HCl 0.4 MG CAP PO SCH (09:33)
[2022-08-01] MEDS ORDERED: HYDROcodone/Acetaminophen 10/325 mg Tablet PO PRN (12:48)
[2022-08-01 13:41] VITALS: BP 120/80; TEMP 98.3
[2022-08-01] MEDS ORDERED: Aspirin 325 MG TAB PO SCH (21:00)
[2022-08-01] MEDS ORDERED: PROTEIN SUPPLEMENT PO SCH (21:00)
[2022-08-02] MEDS ORDERED: Fish Oil 1,000 MG CAP PO SCH (09:00)
[2022-08-02] MEDS ORDERED: Folic Acid 1 MG TAB PO SCH (09:00)
[2022-08-02] MEDS ORDERED: Spironolactone 25 MG TAB PO SCH (09:00)
[2022-08-02] MEDS ORDERED: Multivit, Therapeutic 1 TAB PO SCH (09:00)
[2022-08-05] MEDS ORDERED: TIRZEPATIDE 7.5 MG/0.5 ML SC SCH (09:00)
[2022-08-08] MEDS ORDERED: Etanercept [Enbrel] 50 MG/ML Syringe SC SCH (09:00)
== END 2022-08-01 15:25 | disposition home or self-care (01) | DRG 336 ==
LOC: ERS 19:52 → SURG A 07-29 01:56
PROVIDERS: ADMIT Student in an Organized Health Care Education/Training Program; ATTEND Internal Medicine
PROC: 0DN80ZZ Release Small Intestine, Open Approach (ICD-10-PCS; principal; 2022-07-29)
DX: K56.51 Intestinal adhesions [bands], with partial obstruction (principal); K46.0 Unspecified abdominal hernia with obstruction, without gangrene; N17.9 Acute kidney failure, unspecified; K21.9 Gastro-esophageal reflux disease without esophagitis; I48.91 Unspecified atrial fibrillation; I10 Essential (primary) hypertension; M19.90 Unspecified osteoarthritis, unspecified site; D75.1 Secondary polycythemia; D72.829 Elevated white blood cell count, unspecified; L40.50 Arthropathic psoriasis, unspecified; Z85.528 Personal history of other malignant neoplasm of kidney; Z90.5 Acquired absence of kidney; Z79.899 Other long term (current) drug therapy
CPT/HCPCS: 36415; 36416; 74018; 74177; 80048; 80053; 83605; 83690; 85025; 88305; 88341; 88342; 93005; 93010; 96361; 96374; 96375; 96376; C1776; J0694; J1100; J1885; J2270; J2370; J2405; J2704; J3010; J3480; J3490; J7030; J7050; J7643; P9045; Q9963; Q9967; U0002

== ENCOUNTER 2022-12-05 01:00 | Inpatient (IN) | payer BC ==
[2022-12-05 01:40] VITALS: BMI 28.4
[2022-12-05] MEDS ORDERED: Acetaminophen 325 MG TAB PO PRN (02:52)
[2022-12-05] MEDS ORDERED: Acetaminophen 650 MG Suppository PR PRN (02:52)
[2022-12-05] MEDS: Sodium Chloride 0.9% 1,000 ML IV SCH ×3 (03:15→21:54)
[2022-12-05 06:20] LABS: #Eosinphils 0.1 thou/uL (0.0-0.7); #Lymphocytes 0.8 thou/uL (1.20-3.40); #Monocytes 0.7 thou/uL (0.11-0.59); #Neutrophils 13.4 thou/uL (1.40-6.50); %Basophils 0.1 % (0.0-1.0); %Eosinophils 0.4 % (0.0-10.0); %Lymphocytes 5.5 % (21.0-51.0); %Monocytes 4.6 % (0.0-10.0); %Neutrophils 89.4 % (42.0-75.0); Hemoglobin 19.8 g/dL (14.0-18.0); Mean Corpuscular HGB CONC 34.6 g/dL (32.0-36.0); Mean Corpuscular Hemoglobin 33.5 pg (27.0-31.0); Mean Corpuscular Volume 96.9 fl (78.0-98.0); Mean Platelet Volume 7.3 fL (7.4-10.4); Platelet Count 251 10x3/uL (130-400); RBC Distribution Width 15.2 % (11.5-14.5); Red Blood Cell (RBC) Count 5.91 mill/uL (4.70-6.10); White Blood Cell (WBC) Count 14.9 10x3/uL (4.8-10.8)
[2022-12-05 06:37] LABS: Anion Gap 18 mmol/L (10-20); BUN (Urea Nitrogen) 26 mg/dL (8.4-25.7); Calc. Creatinine Clearance 56 mL/min (70-130); Calcium 10.3 mg/dL (7.8-10.44); Carbon Dioxide 25 mmol/L (22-29); Chloride 98 mmol/L (98-107); Estimated GFR 43; Glucose 113 mg/dL (70-105); Potassium 3.5 mmol/L (3.5-5.1); Sodium 137 mmol/L (136-145)
[2022-12-05] MEDS: Pantoprazole 40 MG VIAL IVP SCH (08:28)
[2022-12-05] MEDS ORDERED: MD-Gastroview 120 ML BOT ONE (09:04)
[2022-12-05] MEDS: Ondansetron PF 4 MG/2 ML Vial IVP PRN (10:59)
[2022-12-05] MEDS: HYDROcodone/Acetaminophen 10/325 mg Tablet PO PRN ×2 (16:27→20:20)
[2022-12-05] MEDS ORDERED: Magnesium 2 GM/50 ML(in water) 2 GM in Premix Bag 1 BAG IVPB SCH (16:30)
[2022-12-05 17:22] LABS: Magnesium 2.1 mg/dL (1.6-2.6); Phosphorus 3.9 mg/dL (2.3-4.7)
[2022-12-05] MEDS ORDERED: Potassium Chloride 20 MEQ in Premix Bag 1 BAG IVPB SCH (18:45)
[2022-12-05] MEDS: Amlodipine 10 MG TAB PO SCH (20:19)
[2022-12-06] MEDS: HYDROcodone/Acetaminophen 10/325 mg Tablet PO PRN ×5 (00:28→21:23)
[2022-12-06] MEDS: Sodium Chloride 0.9% 1,000 ML IV SCH ×2 (05:20→14:14)
[2022-12-06 07:13] LABS: #Eosinphils 0.1 thou/uL (0.0-0.7); #Lymphocytes 1.4 thou/uL (1.20-3.40); #Monocytes 0.8 thou/uL (0.11-0.59); #Neutrophils 10.7 thou/uL (1.40-6.50); %Basophils 0.2 % (0.0-1.0); %Eosinophils 0.5 % (0.0-10.0); %Lymphocytes 11.1 % (21.0-51.0); %Neutrophils 82.1 % (42.0-75.0); Hemoglobin 18.9 g/dL (14.0-18.0); Mean Corpuscular Hemoglobin 32.1 pg (27.0-31.0); Mean Corpuscular Volume 97.1 fl (78.0-98.0); Mean Platelet Volume 7.6 fL (7.4-10.4); Platelet Count 251 10x3/uL (130-400); RBC Distribution Width 15.4 % (11.5-14.5); Red Blood Cell (RBC) Count 5.88 mill/uL (4.70-6.10)
[2022-12-06 08:14] LABS: Anion Gap 21 mmol/L (10-20); BUN (Urea Nitrogen) 40 mg/dL (8.4-25.7); Calc. Creatinine Clearance 44 mL/min (70-130); Calcium 9.5 mg/dL (7.8-10.44); Carbon Dioxide 26 mmol/L (22-29); Chloride 92 mmol/L (98-107); Estimated GFR 32; Glucose 77 mg/dL (70-105); Magnesium 2.6 mg/dL (1.6-2.6); Phosphorus 4.9 mg/dL (2.3-4.7); Potassium 3.3 mmol/L (3.5-5.1); Sodium 136 mmol/L (136-145)
[2022-12-06] MEDS ORDERED: Sodium Chloride 0.9% 500 ML IV SCH (08:30)
[2022-12-06] MEDS: Potassium Chloride 20 MEQ in Premix Bag 1 BAG IVPB SCH ×2 (09:30→14:07)
[2022-12-06] MEDS: Pantoprazole 40 MG VIAL IVP SCH (09:30)
[2022-12-06] MEDS: Heparin 5,000 UNITS/ML VIAL SC SCH ×2 (09:31→21:23)
[2022-12-06] MEDS: Tamsulosin HCl 0.4 MG CAP PO SCH (09:31)
[2022-12-06] MEDS: Amlodipine 10 MG TAB PO SCH (21:25)
[2022-12-07] MEDS: Sodium Chloride 0.9% 1,000 ML IV SCH ×3 (01:43→14:41)
[2022-12-07] MEDS: HYDROcodone/Acetaminophen 10/325 mg Tablet PO PRN ×2 (01:45→08:15)
[2022-12-07] MEDS: Phenol 118 ML BOT PO PRN (03:59)
[2022-12-07] MEDS: Heparin 5,000 UNITS/ML VIAL SC SCH ×2 (08:13→20:20)
[2022-12-07] MEDS: Tamsulosin HCl 0.4 MG CAP PO SCH (08:13)
[2022-12-07] MEDS: Pantoprazole 40 MG VIAL IVP SCH (08:13)
[2022-12-07 08:36] LABS: #Basophils 0.1 thou/uL (0.0-0.2); #Eosinphils 0.1 thou/uL (0.0-0.7); #Lymphocytes 0.9 thou/uL (1.20-3.40); #Monocytes 0.7 thou/uL (0.11-0.59); #Neutrophils 7.7 thou/uL (1.40-6.50); %Basophils 0.9 % (0.0-1.0); %Eosinophils 0.8 % (0.0-10.0); %Lymphocytes 9.6 % (21.0-51.0); %Monocytes 7.1 % (0.0-10.0); %Neutrophils 81.6 % (42.0-75.0); Hemoglobin 17.3 g/dL (14.0-18.0); Mean Corpuscular HGB CONC 32.3 g/dL (32.0-36.0); Mean Corpuscular Hemoglobin 31.7 pg (27.0-31.0); Mean Corpuscular Volume 98.2 fl (78.0-98.0); Mean Platelet Volume 7.4 fL (7.4-10.4); Platelet Count 206 10x3/uL (130-400); RBC Distribution Width 14.9 % (11.5-14.5); Red Blood Cell (RBC) Count 5.45 mill/uL (4.70-6.10); White Blood Cell (WBC) Count 9.5 10x3/uL (4.8-10.8)
[2022-12-07 08:37] LABS: Anion Gap 14 mmol/L (10-20); BUN (Urea Nitrogen) 32 mg/dL (8.4-25.7); Calc. Creatinine Clearance 62 mL/min (70-130); Calcium 8.8 mg/dL (7.8-10.44); Carbon Dioxide 32 mmol/L (22-29); Chloride 94 mmol/L (98-107); Estimated GFR 49; Glucose 82 mg/dL (70-105); Potassium 3.5 mmol/L (3.5-5.1); Sodium 136 mmol/L (136-145)
[2022-12-07] MEDS: Amlodipine 10 MG TAB PO SCH (20:19)
[2022-12-08] MEDS: Sodium Chloride 0.9% 1,000 ML IV SCH ×2 (00:47→05:09)
[2022-12-08] MEDS: Ondansetron ODT 4 MG TAB PO PRN (04:26)
[2022-12-08] MEDS: Heparin 5,000 UNITS/ML VIAL SC SCH ×2 (08:44→21:13)
[2022-12-08] MEDS: Pantoprazole 40 MG VIAL IVP SCH (08:45)
[2022-12-08] MEDS: Tamsulosin HCl 0.4 MG CAP PO SCH (08:45)
[2022-12-08] MEDS ORDERED: Sodium Chloride 0.9% 1,000 ML IV SCH (10:22)
[2022-12-08] MEDS: Ondansetron PF 4 MG/2 ML Vial IVP PRN ×2 (10:23→18:04)
[2022-12-08] MEDS: HYDROcodone/Acetaminophen 10/325 mg Tablet PO PRN ×2 (10:23→18:04)
[2022-12-08] MEDS: Amlodipine 10 MG TAB PO SCH (21:12)
[2022-12-09] MEDS: Ondansetron PF 4 MG/2 ML Vial IVP PRN ×2 (00:01→08:56)
[2022-12-09] MEDS: Ondansetron ODT 4 MG TAB PO PRN (04:42)
[2022-12-09] MEDS: HYDROcodone/Acetaminophen 10/325 mg Tablet PO PRN ×2 (04:46→08:56)
[2022-12-09 05:47] LABS: #Eosinphils 0.1 thou/uL (0.0-0.7); #Lymphocytes 0.7 thou/uL (1.20-3.40); #Monocytes 0.7 thou/uL (0.11-0.59); #Neutrophils 6.1 thou/uL (1.40-6.50); %Basophils 0.2 % (0.0-1.0); %Eosinophils 0.9 % (0.0-10.0); %Lymphocytes 8.8 % (21.0-51.0); %Neutrophils 81.2 % (42.0-75.0); Hemoglobin 17.5 g/dL (14.0-18.0); Mean Corpuscular HGB CONC 32.7 g/dL (32.0-36.0); Mean Corpuscular Hemoglobin 32.2 pg (27.0-31.0); Mean Corpuscular Volume 98.6 fl (78.0-98.0); Mean Platelet Volume 7.3 fL (7.4-10.4); Platelet Count 216 10x3/uL (130-400); RBC Distribution Width 14.5 % (11.5-14.5); Red Blood Cell (RBC) Count 5.42 mill/uL (4.70-6.10); White Blood Cell (WBC) Count 7.5 10x3/uL (4.8-10.8)
[2022-12-09 06:06] LABS: Anion Gap 15 mmol/L (10-20); BUN (Urea Nitrogen) 16 mg/dL (8.4-25.7); Calc. Creatinine Clearance 81 mL/min (70-130); Calcium 9.2 mg/dL (7.8-10.44); Carbon Dioxide 25 mmol/L (22-29); Chloride 97 mmol/L (98-107); Estimated GFR 67; Glucose 91 mg/dL (70-105); Potassium 3.4 mmol/L (3.5-5.1); Sodium 134 mmol/L (136-145)
[2022-12-09] MEDS: Tamsulosin HCl 0.4 MG CAP PO SCH (08:01)
[2022-12-09] MEDS: Pantoprazole 40 MG VIAL IVP SCH (08:01)
[2022-12-09] MEDS: Heparin 5,000 UNITS/ML VIAL SC SCH (08:02)
[2022-12-09] MEDS ORDERED: Bupivacaine/Epinephrine 0.25% 30 ML VIAL ONE (14:59)
[2022-12-09] MEDS ORDERED: fentaNYL PF 100 MCG/2 ML SYRINGE ONE (16:15)
[2022-12-09] MEDS ORDERED: cefOXitin 2 GM VIAL ONE (16:42)
[2022-12-09] MEDS ORDERED: Sodium Chloride 0.9% 100 ML ONE (16:42)
[2022-12-09] MEDS ORDERED: SUGAMMADEX SODIUM 200 MG/2 ML VIAL ONE (16:43)
[2022-12-09] MEDS ORDERED: Rocuronium Bromide 10 MG/ML (10ML VIAL) ONE (16:45)
[2022-12-09] MEDS ORDERED: PROPOFOL 200 MG/20 ML VIAL ONE (16:45)
[2022-12-09] MEDS ORDERED: Lidocaine 1% PF 5 ML VIAL ONE (16:45)
[2022-12-09] MEDS ORDERED: Ondansetron PF 4 MG/2 ML Vial ONE (16:45)
[2022-12-09] MEDS ORDERED: Dexamethasone 20 MG/5 ML VIAL ONE (16:45)
[2022-12-09] MEDS ORDERED: Ondansetron PF 4 MG/2 ML Vial IVP PRN (18:23)
[2022-12-09] MEDS ORDERED: FENTANYL 500 MCG/10 ML VIAL 2,000 MCG in Sodium Chloride 0.9% 60 ML IV PRN (18:23)
[2022-12-09] MEDS ORDERED: diphenhydrAMINE 50 MG/ML VIAL IVP PRN (18:23)
[2022-12-09] MEDS ORDERED: Naloxone HCl 0.4 mg/ml Vial IV PRN (18:23)
[2022-12-09] MEDS ORDERED: Ondansetron HCl/PF 4 MG/2 ML Vial IVP PRN (18:23)
[2022-12-09] MEDS ORDERED: Zolpidem Tartrate 5 MG TAB PO PRN (18:23)
[2022-12-09] MEDS ORDERED: diphenhydrAMINE 25 MG CAP PO PRN (18:23)
[2022-12-09] MEDS ORDERED: Promethazine HCl 25 MG/ML VIAL IM PRN ×2 (18:23)
[2022-12-09] MEDS ORDERED: diphenhydrAMINE 50 MG/ML VIAL IM PRN (18:23)
[2022-12-09] MEDS ORDERED: Communication Order-Pharmacy FS SCH (18:30)
[2022-12-09] MEDS: Amlodipine 10 MG TAB PO SCH (20:52)
[2022-12-09] MEDS: D5 1/2 NS w/20 mEq KCL 1,000 ML IV SCH (20:53)
[2022-12-09] MEDS: Phenol 118 ML BOT PO PRN (21:54)
[2022-12-10 07:21] LABS: #Eosinphils 0.1 thou/uL (0.0-0.7); #Monocytes 0.8 thou/uL (0.11-0.59); #Neutrophils 7.8 thou/uL (1.40-6.50); %Basophils 0.1 % (0.0-1.0); %Lymphocytes 9.9 % (21.0-51.0); %Monocytes 8.6 % (0.0-10.0); %Neutrophils 80.4 % (42.0-75.0); Hemoglobin 16.6 g/dL (14.0-18.0); Mean Corpuscular HGB CONC 33.3 g/dL (32.0-36.0); Mean Corpuscular Hemoglobin 32.7 pg (27.0-31.0); Mean Corpuscular Volume 98.1 fl (78.0-98.0); Mean Platelet Volume 7.5 fL (7.4-10.4); Platelet Count 184 10x3/uL (130-400); RBC Distribution Width 14.5 % (11.5-14.5); Red Blood Cell (RBC) Count 5.06 mill/uL (4.70-6.10); White Blood Cell (WBC) Count 9.7 10x3/uL (4.8-10.8)
[2022-12-10] MEDS: D5 1/2 NS w/20 mEq KCL 1,000 ML IV SCH ×2 (07:28→14:36)
[2022-12-10 07:42] LABS: Anion Gap 11 mmol/L (10-20); BUN (Urea Nitrogen) 12 mg/dL (8.4-25.7); Calc. Creatinine Clearance 74 mL/min (70-130); Calcium 8.6 mg/dL (7.8-10.44); Carbon Dioxide 27 mmol/L (22-29); Chloride 101 mmol/L (98-107); Estimated GFR 61; Glucose 103 mg/dL (70-105); Potassium 3.9 mmol/L (3.5-5.1); Sodium 135 mmol/L (136-145)
[2022-12-10] MEDS: Pantoprazole 40 MG VIAL IVP SCH (08:24)
[2022-12-10] MEDS: Tamsulosin HCl 0.4 MG CAP PO SCH (08:24)
[2022-12-10 12:57] VITALS: BP 129/72; TEMP 98.4
== END 2022-12-10 14:38 | disposition home or self-care (01) | DRG 336 ==
LOC: SURG B 01:02 → OBSVTOIN 12-06 15:59
PROVIDERS: ADMIT Student in an Organized Health Care Education/Training Program; ATTEND Hospitalist
PROC: 0DNW0ZZ Release Peritoneum, Open Approach (ICD-10-PCS; principal; 2022-12-09)
PROC: 0D9770Z Drainage of Stomach, Pylorus with Drainage Device, Via Natural or Artificial Opening (ICD-10-PCS; 2022-12-09)
PROC: 0DQV0ZZ Repair Mesentery, Open Approach (ICD-10-PCS; 2022-12-09)
DX: K56.51 Intestinal adhesions [bands], with partial obstruction (principal); N17.9 Acute kidney failure, unspecified; D75.1 Secondary polycythemia; M13.80 Other specified arthritis, unspecified site; E87.6 Hypokalemia; N18.30 Chronic kidney disease, stage 3 unspecified; I12.9 Hypertensive chronic kidney disease with stage 1 through stage 4 chronic kidney disease, or unspecified chronic kidney disease; D63.1 Anemia in chronic kidney disease; Z79.82 Long term (current) use of aspirin; Z79.899 Other long term (current) drug therapy
CPT/HCPCS: 36415; 36416; 74018; 74250; 80048; 83735; 84100; 85025; 96365; 96372; 96375; 96376; C1776; C9113; G0378; J0694; J1100; J1644; J1650; J2405; J2704; J3475; J3480; J3490; J7030; J7050; Q0162; Q9963

== ENCOUNTER 2022-12-30 13:43 | Outpatient (CLI) | payer BC ==
[2022-12-30 15:05] LABS: Hemoglobin 16.2 g/dL (13.5-17.5); Mean Corpuscular HGB CONC 34.2 g/dL (32.0-36.0); Mean Corpuscular Hemoglobin 31.1 pg (27.0-33.0); Mean Corpuscular Volume 90.8 fl (81.2-95.1); Mean Platelet Volume 9.2 fl (7.4-10.4); Platelet Count 262 10x3/uL (150-450); RBC Distribution Width 15.2 % (11.5-14.5); Red Blood Cell (RBC) Count 5.21 10x6/uL (4.32-5.72); White Blood Cell (WBC) Count 8.5 10x3/uL (3.5-10.5)
[2022-12-30 15:22] LABS: Anion Gap 15 mmol/L (10-20); BUN (Urea Nitrogen) 18 mg/dL (8.4-25.7); Calc. Creatinine Clearance 0 mL/min (70-130); Calcium 8.8 mg/dL (7.8-10.44); Carbon Dioxide 20 mmol/L (22-29); Chloride 107 mmol/L (98-107); Estimated GFR 65; Glucose 86 mg/dL (70-105); PTT 30.5 sec (22.0-33.0); Potassium 4.1 mmol/L (3.5-5.1); Prothrombin Time 10.5 sec (9.5-12.1); Sodium 138 mmol/L (136-145)
== END 2022-12-30 13:44 | disposition home or self-care (01) ==
LOC: LABBT 13:43
PROVIDERS: ATTEND Surgery
DX: Z01.818 Encounter for other preprocedural examination (principal); M54.12 Radiculopathy, cervical region; M48.02 Spinal stenosis, cervical region
CPT/HCPCS: 80048; 85027; 85610; 85730; 93005; 93010

== ENCOUNTER 2022-12-30 14:30 | Inpatient (IN) | payer BC ==
[2023-01-03 12:05] VITALS: BMI 27.5
[2023-01-04] MEDS ORDERED: Dexmedetomidine 200 MCG/2 ML VIAL ONE (09:21)
[2023-01-04] MEDS ORDERED: fentaNYL 50 mcg/mL 1 mL Vial ONE (09:21)
[2023-01-04] MEDS ORDERED: SUGAMMADEX SODIUM 200 MG/2 ML VIAL ONE (09:21)
[2023-01-04] MEDS ORDERED: Thrombin 5000 UNITS/5 ML VIAL ONE (09:26)
[2023-01-04] MEDS ORDERED: Sodium Chloride 0.9% 100 ML ONE (09:36)
[2023-01-04] MEDS ORDERED: CEFAZOLIN 2 GM VIAL ONE (09:36)
[2023-01-04] MEDS ORDERED: Magnesium 5 GM/10 ML VIAL ONE (09:43)
[2023-01-04] MEDS ORDERED: PHENYLEPHRINE-NS 100 MCG/ML 10 ML SYRINGE ONE (10:01)
[2023-01-04] MEDS ORDERED: Ondansetron PF 4 MG/2 ML Vial ONE (10:01)
[2023-01-04] MEDS ORDERED: ePHEDrine Sulfate 50 MG/10 ML VIAL ONE (10:01)
[2023-01-04] MEDS ORDERED: Rocuronium Bromide 10 MG/ML (10ML VIAL) ONE (10:01)
[2023-01-04] MEDS ORDERED: GLYCOPYRROLATE/PF 0.2 MG/ML VIAL ONE (10:01)
[2023-01-04] MEDS ORDERED: NEOSTIGMINE 3 MG/3 ML SYR 3 MG/3 ML SYRINGE ONE (10:01)
[2023-01-04] MEDS ORDERED: PROPOFOL 200 MG/20 ML VIAL ONE (10:01)
[2023-01-04] MEDS ORDERED: Dexamethasone 20 MG/5 ML VIAL ONE (10:01)
[2023-01-04] MEDS ORDERED: Acetaminophen 325 MG TAB PO PRN (10:05)
[2023-01-04] MEDS ORDERED: HYDROcodone/Acetaminophen 7.5/325 mg Tablet PO PRN (10:05)
[2023-01-04] MEDS ORDERED: Ondansetron PF 4 MG/2 ML Vial IVP PRN (10:05)
[2023-01-04] MEDS ORDERED: traMADol HCl 50 MG TAB PO PRN (10:05)
[2023-01-04] MEDS ORDERED: Acetaminophen/Codeine 30-300mg Tablet PO PRN (10:05)
[2023-01-04] MEDS ORDERED: Morphine 2 MG/ML VIAL SLOW IVP PRN (10:05)
[2023-01-04] MEDS ORDERED: diphenhydrAMINE 25 MG CAP PO PRN (10:05)
[2023-01-04] MEDS ORDERED: hydrALAZINE 20 MG/ML VIAL SLOW IVP PRN (10:08)
[2023-01-04] MEDS ORDERED: Fentanyl 250 MCG/5 ML VIAL ONE (12:21)
[2023-01-04] MEDS ORDERED: Phenol 118 ML BOT PO PRN (12:31)
[2023-01-04] MEDS ORDERED: Cepastat Lozenges 1 LOZ PO PRN (12:31)
[2023-01-04] MEDS: Sodium Chloride 0.9% 1,000 ML IV SCH ×2 (14:17→23:26)
[2023-01-04] MEDS: CEFAZOLIN 2 GM in Sodium Chloride 0.9% 100 ML IVPB SCH ×2 (14:17→21:09)
[2023-01-04] MEDS: tiZANidine HCl 4 MG TAB PO PRN (17:37)
[2023-01-04] MEDS: HYDROcodone/Acetaminophen 10/325 mg Tablet PO PRN ×2 (18:17→21:17)
[2023-01-04] MEDS ORDERED: Amlodipine 10 MG TAB PO SCH (21:00)
[2023-01-05] MEDS: tiZANidine HCl 4 MG TAB PO PRN ×2 (02:20→09:47)
[2023-01-05] MEDS: HYDROcodone/Acetaminophen 10/325 mg Tablet PO PRN ×3 (02:20→14:15)
[2023-01-05] MEDS: CEFAZOLIN 2 GM in Sodium Chloride 0.9% 100 ML IVPB SCH ×2 (05:08→14:15)
[2023-01-05] MEDS ORDERED: Folic Acid 1 MG TAB PO SCH (09:00)
[2023-01-05] MEDS ORDERED: Non-Formulary Item 1 EACH (Omeprazole [Omeprazole] 40 MG Capsule.Dr) PO SCH (09:00)
[2023-01-05] MEDS ORDERED: Tamsulosin HCl 0.4 MG CAP PO SCH (09:00)
[2023-01-05] MEDS: Sodium Chloride 0.9% 1,000 ML IV SCH (14:19)
[2023-01-05 15:48] VITALS: BP 152/88; TEMP 97.6
== END 2023-01-05 16:52 | disposition home or self-care (01) | DRG 473 ==
LOC: SURG A 01-04 08:14 → SJJU 01-04 13:48
PROVIDERS: ADMIT Surgery; ATTEND Surgery
PROC: 0RG20A0 Fusion of 2 or more Cervical Vertebral Joints with Interbody Fusion Device, Anterior Approach, Anterior Column, Open Approach (ICD-10-PCS; principal; 2023-01-04)
PROC: 0RB30ZZ Excision of Cervical Vertebral Disc, Open Approach (ICD-10-PCS; 2023-01-04)
PROC: 01N10ZZ Release Cervical Nerve, Open Approach (ICD-10-PCS; 2023-01-04)
DX: M48.02 Spinal stenosis, cervical region (principal); M54.12 Radiculopathy, cervical region; Z96.612 Presence of left artificial shoulder joint; Z96.611 Presence of right artificial shoulder joint; Z96.659 Presence of unspecified artificial knee joint; R20.2 Paresthesia of skin; Z90.89 Acquired absence of other organs; Z90.49 Acquired absence of other specified parts of digestive tract
CPT/HCPCS: C1713; C1768; C1776; J1100; J2405; J2704; J3010; J3475; J3490; J7050

== ENCOUNTER 2023-12-24 17:08 | Inpatient (IN) | payer OTHER ==
[2023-12-24 18:35] VITALS: BMI 29.4
[2023-12-28 12:42] VITALS: BP 147/90; TEMP 98.1
== END 2023-12-28 14:30 | disposition home or self-care (01) | DRG 388 ==
LOC: 2SW 18:06 → OBSVTOIN 18:39
PROVIDERS: ADMIT Family Medicine; ATTEND Internal Medicine
DX: K56.600 Partial intestinal obstruction, unspecified as to cause (principal); K85.90 Acute pancreatitis without necrosis or infection, unspecified; K81.0 Acute cholecystitis; N17.9 Acute kidney failure, unspecified; I48.20 Chronic atrial fibrillation, unspecified; E87.1 Hypo-osmolality and hyponatremia; R74.01 Elevation of levels of liver transaminase levels; D72.829 Elevated white blood cell count, unspecified; K21.9 Gastro-esophageal reflux disease without esophagitis; Z79.899 Other long term (current) drug therapy; Z90.49 Acquired absence of other specified parts of digestive tract; Z90.89 Acquired absence of other organs; N40.0 Benign prostatic hyperplasia without lower urinary tract symptoms; N18.30 Chronic kidney disease, stage 3 unspecified; I12.9 Hypertensive chronic kidney disease with stage 1 through stage 4 chronic kidney disease, or unspecified chronic kidney disease; E11.22 Type 2 diabetes mellitus with diabetic chronic kidney disease; K56.609 Unspecified intestinal obstruction, unspecified as to partial versus complete obstruction; R07.9 Chest pain, unspecified
CPT/HCPCS: 36415; 36416; 71045; 74174; 74177; 76705; 80048; 80053; 80076; 80306; 81001; 82140; 82150; 83605; 83690; 83735; 84478; 84484; 85025; 87040; 93005; 93010; 96374; 96375; 96376; J1644; J1815; J1885; J2060; J2270; J2405; J2543; J3490; J7050; J7120; Q9967

== ENCOUNTER 2024-06-22 07:35 | Emergency (ER) | payer OTHER ==
[2024-06-22 08:15] LABS: #Basophils Less than 0.03 10x3/uL (0.0-0.2); #Eosinophils Less than 0.03 10x3/uL (0.0-0.7); %Basophils 0.1 % (0.0-1.0); %Lymphocytes 3.9 % (21.0-51.0); %Monocytes 5.2 % (0.0-10.0); %Neutrophils 89.9 % (42.0-75.0); Hematocrit 27.3 % (42.0-52.0); Mean Corpuscular Hemoglobin 33.2 pg (27.0-31.0); Mean Corpuscular Volume 100.7 fL (78.0-98.0); Mean Platelet Volume 9.7 fL (7.4-10.4); Platelet Count 266 10x3/uL (130-400); RBC Distribution Width 15.9 % (11.5-14.5); Red Blood Cell (RBC) Count 2.71 mill/uL (4.70-6.10)
[2024-06-22 08:28] LABS: ALT (SGPT) 19 U/L (8-55); AST (SGOT) 26 U/L (5-34); Alkaline Phosphatase 50 U/L (40-110); Anion Gap 14 mmol/L (10-20); BUN (Urea Nitrogen) 34 mg/dL (8.4-25.7); Bilirubin, Total 0.9 mg/dL (0.2-1.2); Calc. Creatinine Clearance 0 mL/min (70-130); Calcium 7.6 mg/dL (7.8-10.44); Carbon Dioxide 18 mmol/L (23-31); Chloride 105 mmol/L (98-107); Estimated GFR 21; Globulin 2.1 g/dL (2.4-3.5); Glucose 166 mg/dL (80-115); Potassium 4.2 mmol/L (3.5-5.1); Protein, Total 5.1 g/dL (5.8-8.1); Sodium 133 mmol/L (136-145)
[2024-06-22 08:30] LABS: INR-International Normal Ratio 1.3; PTT 24.8 sec (22.9-36.1); Prothrombin Time 16.1 sec (12.0-14.7)
[2024-06-22] MEDS ORDERED: fentaNYL 50 mcg/mL 1 mL Vial ONE ×2 (08:57→09:48)
== END 2024-06-22 10:25 | disposition short-term general hospital (02) ==
LOC: ERS 07:35
DX: N17.9 Acute kidney failure, unspecified (principal); R57.8 Other shock; N99.840 Postprocedural hematoma of a genitourinary system organ or structure following a genitourinary system procedure; I10 Essential (primary) hypertension
CPT/HCPCS: 36430; 36556; 80053; 85025; 85610; 85730; 86850; 86900; 86901; 96374; 96376; J3010; P9016

== ENCOUNTER 2024-08-06 12:15 | Emergency (ER) | payer OTHER ==
[2024-08-06] MEDS ORDERED: Iopamidol-370 76% 500 ML MDV (1 ML CHARGE) ONE (13:01)
[2024-08-06 13:05] LABS: #Basophils 0.03 10x3/uL (0.0-0.2); %Basophils 0.3 % (0.0-1.0); %Eosinophils 1.1 % (0.0-10.0); %Monocytes 5.1 % (0.0-10.0); %Neutrophils 85.9 % (42.0-75.0); Hemoglobin 13.1 g/dL (14.0-18.0); Mean Corpuscular Hemoglobin 29.8 pg (27.0-31.0); Mean Corpuscular Volume 93.4 fL (78.0-98.0); Mean Platelet Volume 8.7 fL (7.4-10.4); Platelet Count 367 10x3/uL (130-400); RBC Distribution Width 16.6 % (11.5-14.5); Red Blood Cell (RBC) Count 4.39 mill/uL (4.70-6.10)
[2024-08-06 13:30] LABS: ALT (SGPT) 51 U/L (8-55); AST (SGOT) 49 U/L (5-34); Albumin 2.5 g/dL (3.4-4.8); Alkaline Phosphatase 97 U/L (40-110); Anion Gap 12 mmol/L (10-20); BUN (Urea Nitrogen) 14 mg/dL (8.4-25.7); Bilirubin, Total 0.4 mg/dL (0.2-1.2); CK (CPK) 211 U/L (30-200); Calc. Creatinine Clearance 0 mL/min (70-130); Calcium 8.6 mg/dL (7.8-10.44); Carbon Dioxide 22 mmol/L (23-31); Chloride 106 mmol/L (98-107); Estimated GFR 58; Globulin 3.2 g/dL (2.4-3.5); Glucose 103 mg/dL (80-115); Lipase 19 U/L (8-78); Potassium 4.3 mmol/L (3.5-5.1); Protein, Total 5.7 g/dL (5.8-8.1); Sodium 136 mmol/L (136-145)
[2024-08-06 13:33] LABS: Troponin I 0.047 ng/mL (< 0.028)
[2024-08-06] MEDS ORDERED: Ondansetron PF 4 MG/2 ML Vial ONE (14:36)
[2024-08-06] MEDS ORDERED: Morphine 4 MG/ML VIAL ONE (14:36)
[2024-08-06 17:07] LABS: Troponin I 0.053 ng/mL (< 0.028)
[2024-08-07] MEDS ORDERED: HYDROcodone/Acetaminophen 7.5/325 mg Tablet ONE (01:52)
[2024-08-07] MEDS ORDERED: HYDROcodone/Acetaminophen 10/325 mg Tablet ONE (01:53)
[2024-08-07 02:30] LABS: Troponin I 0.042 ng/mL (< 0.028)
== END 2024-08-07 02:09 | disposition short-term general hospital (02) ==
LOC: ERS 12:15
DX: R18.8 Other ascites (principal); R79.89 Other specified abnormal findings of blood chemistry; I10 Essential (primary) hypertension
CPT/HCPCS: 36415; 74177; 80053; 82550; 83605; 83690; 84484; 85025; 93005; 96374; 96375; J2272; J2405

== ENCOUNTER 2024-08-22 11:03 | Emergency (ER) | payer OTHER ==
[2024-08-22 12:08] LABS: #Basophils 0.03 10x3/uL (0.0-0.2); %Basophils 0.4 % (0.0-1.0); %Eosinophils 1.3 % (0.0-10.0); %Lymphocytes 14.9 % (21.0-51.0); %Monocytes 9.8 % (0.0-10.0); %Neutrophils 73.2 % (42.0-75.0); Hematocrit 44.6 % (42.0-52.0); Hemoglobin 14.4 g/dL (14.0-18.0); Mean Corpuscular HGB CONC 32.3 g/dL (32.0-36.0); Mean Corpuscular Hemoglobin 29.1 pg (27.0-31.0); Mean Corpuscular Volume 90.3 fL (78.0-98.0); Platelet Count 352 10x3/uL (130-400); RBC Distribution Width 16.9 % (11.5-14.5); Red Blood Cell (RBC) Count 4.94 mill/uL (4.70-6.10)
[2024-08-22] MEDS ORDERED: Morphine 4 MG/ML VIAL ONE (12:09)
[2024-08-22 12:24] LABS: ALT (SGPT) 87 U/L (8-55); AST (SGOT) 77 U/L (5-34); Albumin 2.9 g/dL (3.4-4.8); Alkaline Phosphatase 139 U/L (40-110); Anion Gap 12 mmol/L (10-20); BUN (Urea Nitrogen) 16 mg/dL (8.4-25.7); Bilirubin, Total 0.3 mg/dL (0.2-1.2); Calc. Creatinine Clearance 0 mL/min (70-130); Calcium 8.9 mg/dL (7.8-10.44); Carbon Dioxide 22 mmol/L (23-31); Chloride 105 mmol/L (98-107); Estimated GFR 63; Globulin 3.4 g/dL (2.4-3.5); Glucose 113 mg/dL (80-115); Lipase 16 U/L (8-78); Potassium 3.9 mmol/L (3.5-5.1); Protein, Total 6.3 g/dL (5.8-8.1); Sodium 135 mmol/L (136-145)
[2024-08-22 12:34] LABS: PTT 34.1 sec (22.9-36.1)
[2024-08-22 14:38] LABS: RBC Count-Automated (BF) 285 /cu.mm; WBC/Nucleated-Auto (BF) 342 /cu.mm
[2024-08-22 14:54] LABS: Body Fluid Source Ascites Body Fluid; Clarity Clear (Clear); Tube # 1
[2024-08-22 14:55] LABS: BF Color Yellow
[2024-08-22 14:59] LABS: BF Segmented Neutrophils 1 %; Cell Count Non Hematic 7 %; Lymphocytes 92 %
== END 2024-08-22 15:10 | disposition home or self-care (01) ==
LOC: ERS 11:03
DX: K74.60 Unspecified cirrhosis of liver (principal); R14.0 Abdominal distension (gaseous); I10 Essential (primary) hypertension; K21.9 Gastro-esophageal reflux disease without esophagitis; Z79.899 Other long term (current) drug therapy
CPT/HCPCS: 49083; 80053; 83690; 85025; 85060; 85610; 85730; 87070; 87205; 89051; 96374; J2272

== ENCOUNTER 2024-09-04 07:18 | Day surgery (SDC) | payer OTHER ==
[2024-09-04 07:51] LABS: #Basophils 0.03 10x3/uL (0.0-0.2); %Basophils 0.3 % (0.0-1.0); %Eosinophils 0.9 % (0.0-10.0); %Lymphocytes 9.7 % (21.0-51.0); %Monocytes 6.5 % (0.0-10.0); %Neutrophils 81.8 % (42.0-75.0); Hematocrit 48.3 % (42.0-52.0); Hemoglobin 15.2 g/dL (14.0-18.0); Mean Corpuscular HGB CONC 31.5 g/dL (32.0-36.0); Mean Corpuscular Hemoglobin 28.3 pg (27.0-31.0); Mean Corpuscular Volume 89.9 fL (78.0-98.0); Mean Platelet Volume 8.7 fL (7.4-10.4); Platelet Count 344 10x3/uL (130-400); RBC Distribution Width 16.4 % (11.5-14.5); Red Blood Cell (RBC) Count 5.37 mill/uL (4.70-6.10)
[2024-09-04] MEDS ORDERED: Lidocaine 1% PF 5 ML VIAL ONE (08:09)
[2024-09-04] MEDS ORDERED: Lidocaine 1% w/Epinephrine 1:100K 20 ML VIAL ONE (08:09)
[2024-09-04] MEDS ORDERED: Sodium Bicarbonate 2.5 MEQ/5 ML SDV ONE (08:09)
[2024-09-04] MEDS ORDERED: Albumin 25% 100 ML ONE (08:11)
[2024-09-04 08:18] LABS: PTT 31.9 sec (22.9-36.1); Prothrombin Time 13.2 sec (12.0-14.7)
[2024-09-04 13:42] LABS: Fluid, Protein 2.3 g/dL (Not Available); RBC Count-Automated (BF) 1018 /cu.mm; WBC/Nucleated-Auto (BF) 475 /cu.mm
[2024-09-04 13:44] LABS: BF Color Yellow; Body Fluid Source Ascites Body Fluid; Clarity Clear (Clear); Tube # EDTA
[2024-09-04 14:01] LABS: Cell Count Non Hematic 14 %; Eosinophils 1 %; Lymphocytes 85 %
[2024-09-05 12:14] LABS: Albumin, Fluid 1.8 g/dL (Not Estab.)
[2024-09-06 14:11] LABS: CEA, Fluid 2.1 ng/mL (Not Estab.)
== END 2024-09-04 10:00 | disposition home or self-care (01) ==
LOC: ULT 07:18
PROVIDERS: ATTEND Family Medicine
PROC: 0W9G3ZZ Drainage of Peritoneal Cavity, Percutaneous Approach (ICD-10-PCS; principal; 2024-09-04)
DX: R18.8 Other ascites (principal)
CPT/HCPCS: 36415; 49083; 82042; 82150; 82378; 82945; 83615; 84157; 85025; 85060; 85610; 85730; 87070; 87205; 89051; P9047

== ENCOUNTER 2024-09-12 19:34 | Emergency (ER) | payer OTHER ==
[2024-09-12 21:08] LABS: #Basophils 0.03 10x3/uL (0.0-0.2); %Basophils 0.3 % (0.0-1.0); %Eosinophils 1.6 % (0.0-10.0); %Lymphocytes 18.2 % (21.0-51.0); %Monocytes 8.1 % (0.0-10.0); %Neutrophils 71.4 % (42.0-75.0); Hematocrit 46.5 % (42.0-52.0); Hemoglobin 14.5 g/dL (14.0-18.0); Mean Corpuscular HGB CONC 31.2 g/dL (32.0-36.0); Mean Corpuscular Hemoglobin 28.5 pg (27.0-31.0); Mean Corpuscular Volume 91.4 fL (78.0-98.0); Mean Platelet Volume 9.2 fL (7.4-10.4); Platelet Count 271 10x3/uL (130-400); RBC Distribution Width 16.1 % (11.5-14.5); Red Blood Cell (RBC) Count 5.09 mill/uL (4.70-6.10)
[2024-09-12 21:27] LABS: ALT (SGPT) 46 U/L (Less than 45); AST (SGOT) 77 U/L (11-34); Albumin 2.7 g/dL (3.1-4.5); Alkaline Phosphatase 95 U/L (40-110); Anion Gap 14 mmol/L (10-20); BUN (Urea Nitrogen) 18 mg/dL (8.4-25.7); Bilirubin, Total 0.3 mg/dL (0.3-1.2); Calc. Creatinine Clearance 0 mL/min (70-130); Calcium 8.5 mg/dL (7.8-10.44); Carbon Dioxide 19 mmol/L (23-31); Chloride 106 mmol/L (98-107); Estimated GFR 64; Globulin 3.4 g/dL (2.4-3.5); Glucose 82 mg/dL (80-115); Lipase 23 U/L (8-78); Potassium 4.6 mmol/L (3.5-5.1); Protein, Total 6.1 g/dL (5.8-8.1); Sodium 134 mmol/L (136-145)
== END 2024-09-12 21:04 | disposition home or self-care (01) ==
LOC: ERS 19:34
DX: R18.8 Other ascites (principal); I10 Essential (primary) hypertension; K21.9 Gastro-esophageal reflux disease without esophagitis
CPT/HCPCS: 36415; 80053; 83605; 83690; 85025; 85610; 85730; 99284

== ENCOUNTER 2024-09-14 07:38 | Outpatient (CLI) | payer OTHER | END 2024-09-14 07:39 | disposition home or self-care (01) | LOC: ULT 07:38 | PROVIDERS: ATTEND Internal Medicine Gastroenterology | DX: R18.8 Other ascites (principal) | CPT/HCPCS: 76705 ==

== ENCOUNTER 2024-09-21 12:55 | Day surgery (SDC) | payer OTHER ==
[2024-09-21] MEDS ORDERED: Sodium Bicarbonate 2.5 MEQ/5 ML SDV ONE (12:59)
[2024-09-21] MEDS ORDERED: Lidocaine 1% PF 5 ML VIAL ONE ×2 (12:59→13:53)
[2024-09-21] MEDS ORDERED: Albumin 25% 100 ML ONE (13:09)
[2024-09-21 16:45] LABS: Fluid, Protein 2.2 g/dL (Not Available)
[2024-09-21 17:15] LABS: RBC Count-Automated (BF) 45 /cu.mm
[2024-09-21 17:41] LABS: BF Color Yellow; Body Fluid Source Ascites Body Fluid; Clarity Clear (Clear); Tube # EDTA
[2024-09-21 17:50] LABS: WBC/Nucleated-Auto (BF) 10 /cu.mm
[2024-09-21 17:51] LABS: Lymphocytes 72 %
[2024-09-21 17:52] LABS: BF Segmented Neutrophils 1 %; Cell Count Non Hematic 25 %; Eosinophils 2 %
[2024-09-24 15:12] LABS: Albumin, Fluid 1.5 g/dL (Not Estab.)
== END 2024-09-21 14:30 | disposition home or self-care (01) ==
LOC: ULT 12:55
PROVIDERS: ATTEND Family Medicine
PROC: 0W9G3ZZ Drainage of Peritoneal Cavity, Percutaneous Approach (ICD-10-PCS; principal; 2024-09-21)
DX: R18.8 Other ascites (principal); C61 Malignant neoplasm of prostate; C64.9 Malignant neoplasm of unspecified kidney, except renal pelvis; K86.89 Other specified diseases of pancreas; K22.70 Barrett's esophagus without dysplasia; K21.9 Gastro-esophageal reflux disease without esophagitis; Z96.651 Presence of right artificial knee joint; Z96.611 Presence of right artificial shoulder joint; Z87.891 Personal history of nicotine dependence; Z90.89 Acquired absence of other organs; Z90.79 Acquired absence of other genital organ(s); Z90.49 Acquired absence of other specified parts of digestive tract; Z88.8 Allergy status to other drugs, medicaments and biological substances; Z79.899 Other long term (current) drug therapy
CPT/HCPCS: 49083; 82042; 82150; 83690; 84157; 85060; 87070; 87102; 87116; 87205; 87206; 89051; P9047